=== PATIENT | female | born 1995 | race Caucasian/White ===

== ENCOUNTER 2024-05-26 11:14 | Inpatient (IN) ==
[2024-05-26] MEDS: SODIUM CHLORIDE 0.9% 1,000 ML IV ONE ×2 (11:48→14:34)
[2024-05-26 12:01] LABS: Basophils # (auto) 0.08 K/uL (0.00-0.20); Basophils % (auto) 0.7 %; Eosinophils # (auto) 0.03 K/uL (0.00-0.50); Eosinophils % (auto) 0.3 %; Hematocrit (blood only) 38.4 % (37.0-47.0); Hemoglobin 12.8 g/dl (12.0-16.0); Immature Granulocytes # (auto) 0.04 K/uL (0.01-0.20); Immature Granulocytes % (auto) 0.3 %; Lymphocytes # (auto) 1.67 K/uL (1.20-3.40); Mean Corpuscular Hemoglobin 30.2 pg (25.0-34.0); Mean Corpuscular Hgb Conc 33.3 g/dL (32.0-36.0); Mean Corpuscular Volume 90.6 fL (80.0-100.0); Mean Platelet Volume 10.4 fL (9.4-12.4); Monocytes # (auto) 0.74 K/uL (0.11-0.59); Monocytes % (auto) 6.2 %; Neutrophils # (auto) 9.37 K/uL (1.40-6.50); Neutrophils % (auto) 78.5 %; Platelet Count 286 K/uL (130-400); RDW Coefficient of Variation 12.4 % (11.5-14.5); RDW Standard Deviation 41.2 fL (36.4-46.3); Red Blood Count 4.24 M/uL (4.20-5.40); White Blood Count 11.93 K/ul (4.8-10.8)
[2024-05-26 12:21] LABS: Albumin Globulin Ratio 1.9 (0.9-2); Albumin Level 4.7 gm/dl (3.4-5.0); BUN Creatinine Ratio 18.3 (10-20); Bilirubin,Total 0.5 mg/dl (0.2-1.0); Calcium 9.4 mg/dl (8.6-10.3); Creatinine Clr Calc Pharmacy 130.7 ml/min; Globulin 2.5 gm/dl (2.5-4.0); Potassium 3.7 mmol/L (3.5-5.1); Total Protein 7.2 gm/dl (6.0-8.3)
[2024-05-26] MEDS: ONDANSETRON INJ 2 MG/ML 2 ML VIAL IV STA (12:25)
[2024-05-26 12:31] LABS: Partial Thromboplastin Time 28 Seconds (21-31); Prothrombin Time 10.7 Seconds (9.0-12.0)
--- NOTE | 2024-05-26 13:01 | Emergency Department Note ---
Impression & Plan Postoperative hemorrhage of anus, Syncope and collapse, CHI (closed head injury), Laceration of scalp ED Provider Note NAME: SHUN REED AGE: 28 SEX: Female INFORMANT: Patient ED PROVIDER(S): Isaac Fish MD CHIEF COMPLAINT: Rectal bleeding PLAN: Disposition: Admitted none Outpatient prescription management: none Referral: None MEDICAL DECISION MAKING: Patient presented because of recurrent rectal bleeding. On examination she had no active bleeding from the surgical site. Internal examination was deferred. Patient did have a slight drop of her hemoglobin by 1 point. She was mildly tachycardic but that resolved. She was treated with Zofran and normal saline. She declined any analgesia. Patient was hydrated. She had no recurrent bleeding and I did place a consult with Dr. Kebede of general surgery. He did evaluate the patient in the ER. He did want to admit the patient for observation. He did place admission orders. The patient then got up on her own accord and went to the bathroom. She became lightheaded. She did have a bloody bowel movement. Patient did have a syncopal episode x 2. She did fall backwards and struck the back of her head. She was seen by nursing and was attended to promptly. Patient was noting a mild headache but no other pain. She felt lightheaded. She was helped up and placing her back into the stretcher she had a third very brief syncopal episode lasting less than 20 seconds. A second IV was established. A second fluid bolus was done and an i-STAT performed. Patient was noted to have dropped her hemoglobin down to 9 from 12. There was a laceration on the back of her head. CT imaging was performed. No skull fracture or bleed noted. Patient was reassessed frequently. Let gel was applied and her scalp laceration was repaired by Zo Newsome PA-C. Please see Zo's note for further details. Dr. Kebede was notified and will reevaluate the patient after his procedure. Patient's type and screen was changed to the type and cross but blood transfusion was held. Thankfully patient did not suffer any other injury from her syncopal episode. I believe the patient had a vagal response to her bloody bowel movement in conjunction with the drop in her hemoglobin. Further management in the hospital be necessary. I refer you to the EMR for further details. Care/management discussed with: visual merchandise manager Level of care consideration(s): After review of the information above and other included data, I feel the patient requires escalation of care to admission Triage Nursing notes: reviewed and agree them. Vital Signs: reviewed and remarkable for no significant abnormalities Additional History obtained from: none Chronic Medical/Social Conditions affecting care: none Prior/ Outside/ External records reviewed: Prior ED record reviewed Differential Diagnosis: Postoperative bleeding, dehydration, coagulopathy, diverticulosis, fissure, infection, as well as other pathologies. Diagnostics, independently interpreted by me: ECG: Deferred Cardiac Monitoring: Cardiac monitoring ordered by me: The patient was placed on continuous cardiac monitoring and observed. It revealed a sinus tachycardic rhythm at 107 beats per minute without ectopy or evidence of dysrhythmia. Continuous cardiac monitoring done again after syncopal episode showed a sinus tachycardia at 100 bpm. No dysrhythmia. After continuous Medical decision rules: none Imaging studies: Head CT: A noncontrast CT scan of the head was performed and was negative for tumor, fracture, intracranial hemorrhage, or other acute pathology. HPI: 28 year old Female arrives for evaluation of rectal bleeding. Patient had a hemorrhoidectomy done by Dr. Layton at [facility] 12 days ago. She had bleeding that started this morning around 2 AM. She came to the emergency department and was seen earlier. Bleeding had stopped. Blood work was unremarkable. Patient was feeling better. She was discharged. She noted passing 2 large clots prior to the ED visit earlier today and then has passed at least for 5 more clots about the size of her hand. Patient noted some mild rectal pain that was a 2 out of 10. No abdominal pain. She felt fatigued and her heart was racing. Pt denies LOC, headache, fevers, diaphoresis, visual changes, neck pain, chest pain, breathing difficulties, nausea, vomiting, abdominal pain, back pain, melena, urinary symptoms, numbness, lymphadenopathy, rash, or other complaints.. PAST MEDICAL HISTORY: See Below, hemorrhoids PAST SURGICAL HISTORY: See Below, hemorrhoidectomy SOCIAL HISTORY: See Below, non-smoker HOME MEDICATIONS: See Below ALLERGIES: See Below VITALS: See Below PHYSICAL EXAMINATION: GENERAL: Awake, alert, anxious-appearing, in no distress HENT: Normocephalic, atraumatic. Oropharynx unremarkable. EYES: Normal conjunctiva. Sclera non-icteric. NECK: Inspection normal. Non-tender. Supple. No nuchal rigidity. FROM. No masses. RESPIRATORY: Clear to auscultation. No wheezes. No rales. Normal respiratory effort. CARDIAC: Tachycardic rate. Normal rhythm. No murmurs. No rubs. Extremities warm and well perfused. Pulses equal. No JVD. GI: Soft, non-distended. No tenderness to palpation. No rebound or guarding. No masses. RECTAL: No perirectal erythema or edema. Postsurgical changes noted in the 6 o'clock position without active bleeding. Internal examination was deferred. MUSCULOSKELETAL: Atraumatic.The back is symmetrical on inspection without obvious abnormality. No joint edema. LOWER EXTREMITIES: Calves are equal size bilaterally and non-tender. No edema. No discoloration. NEURO: Normal sensorium. No sensory or motor deficits noted. SKIN: No rash or jaundice noted. PROCEDURES: See EMR for PA laceration repair CRITICAL CARE: I have personally spent 45 minutes of critical care time in the direct management of this patient. This includes bedside care, interpretation of diagnostic studies, and testing, discussion with consultants, patient, and other required patient management activities. These minutes are in excess of all separately billable procedures. OBSERVATION NOTE: none Past Med/Surg History Problem List (Updated 05/26/24 @ 16:53 by Isaac Fish MD) Laceration of scalp (Acute) CHI (closed head injury) (Acute) Syncope and collapse (Acute) Postoperative hemorrhage of anus (Acute) Rectal bleed (Acute) Encounter for IUD removal Encounter for IUD insertion Encounter for gynecological examination without abnormal finding [facility] ([facility]) [facility] Medical History (Updated 05/26/24 @ 16:53 by Isaac Fish MD) Anxiety Family History Grandmother (Maternal) Breast cancer Grandmother (Paternal) Breast cancer Other No pertinent family history in first degree relatives Denies family history of Ovarian cancer Colorectal cancer Uterine cancer Social History Smoking Status: Never smoker Preferred Language: Khmer Feels Safe at Home: Yes Allergies Allergies Allergy/AdvReac Type Severity Reaction Status Date / Time No Known Allergies Allergy Verified 03/23/20 09:10 Home Meds Home Medications Medication Instructions Recorded Confirmed levonorgestrel 17.5 mcg/24 hr (up 1 device intrauterine DIRECTED 03/23/20 05/26/24 to 5 yrs) 19.5mg intrauterine device (Kyleena) acetaminophen 500 mg tablet 1,000 mg PO BID PRN Pain 05/26/24 05/26/24 Previous Rx's Medication Instructions Recorded docusate sodium 100 mg capsule 100 mg PO DAILY #20 caps 05/26/24 (Colace) Results & Data (ED) Vital Signs Vital Signs - 24 hr 05/26/24 11:15 05/26/24 11:47 05/26/24 12:00 Temperature 36.5 C Temperature Source Temporal Artery Scan Pulse Rate 130 H 85 Pulse Rate from SpO2 Sensor 83 Respiratory Rate 20 18 Blood Pressure 112/69 108/74 Blood Pressure Mean 83 85 Pulse Oximetry 98 97 100 Oxygen Delivery Method Room Air Room Air Sepsis Recent Fever Within 48 Hours No Sepsis New/Unexplained Change in Mental Status N/A Sepsis Action Taken by Nursing No Action Required 05/26/24 12:03 05/26/24 12:18 05/26/24 12:30 Temperature Temperature Source Pulse Rate 89 77 78 Pulse Rate from SpO2 Sensor 86 80 Respiratory Rate 23 15 Blood Pressure 108/74 106/61 Blood Pressure Mean 85 76 Pulse Oximetry 100 100 Oxygen Delivery Method Sepsis Recent Fever Within 48 Hours Sepsis New/Unexplained Change in Mental Status Sepsis Action Taken by Nursing 05/26/24 14:36 05/26/24 15:01 05/26/24 15:30 Temperature Temperature Source Pulse Rate 99 H 100 H Pulse Rate from SpO2 Sensor 97 H 94 H Respiratory Rate 21 12 Blood Pressure 112/75 95/60 L 100/57 L Blood Pressure Mean 87 68 71 Pulse Oximetry 97 97 Oxygen Delivery Method Sepsis Recent Fever Within 48 Hours Sepsis New/Unexplained Change in Mental Status Sepsis Action Taken by Nursing Laboratory Data 05/26/24 11:44 05/26/24 11:44 Lab Results 05/26/24 05/26/24 05/26/24 Range/Units 11:44 14:36 15:06 WBC 11.93 H (4.8-10.8) K/ul RBC 4.24 (4.20-5.40) M/uL Hgb 12.8 (12.0-16.0) g/dl POC Hgb 9.9 L (12.0-16.0) g/dl Hct 38.4 (37.0-47.0) % POC Hct 29 L (37-47) % MCV 90.6 (80.0-100.0) fL MCH 30.2 (25.0-34.0) pg MCHC 33.3 (32.0-36.0) g/dL RDW Std Deviation 41.2 (36.4-46.3) fL RDW Coeff of Shahid 12.4 (11.5-14.5) % Plt Count 286 (130-400) K/uL MPV 10.4 (9.4-12.4) fL Immature Gran % (Auto) 0.3 % Neut % (Auto) 78.5 % Lymph % (Auto) 14.0 % Barnes % (Auto) 6.2 % Eos % (Auto) 0.3 % Baso % (Auto) 0.7 % Neut # (Auto) 9.37 H (1.40-6.50) K/uL Lymph # (Auto) 1.67 (1.20-3.40) K/uL Barnes # (Auto) 0.74 H (0.11-0.59) K/uL Eos # (Auto) 0.03 (0.00-0.50) K/uL Baso # (Auto) 0.08 (0.00-0.20) K/uL Immature Gran # (Auto) 0.04 (0.01-0.20) K/uL PT 10.7 (9.0-12.0) Seconds INR 1.0 (0.9-1.1) APTT 28 (21-31) Seconds PTT Ratio 1.0 POC Sodium 141 (135-144) mmol/L Sodium 138 (136-145) mmol/L POC Potassium 3.8 (3.3-5.0) mmol/L Potassium 3.7 (3.5-5.1) mmol/L POC Chloride 109 (101-112) mmol/L Chloride 108 H (98-107) mmol/L Carbon Dioxide 22 (21-32) mmol/L POC Total CO2 20 L (24-31) mmol/L Anion Gap 8 (3-11) POC Anion Gap 16.0 (16-25) mmol/L POC BUN 8 (7-18) mg/dl BUN 11 (6-23) mg/dl Creatinine 0.60 (0.6-1.2) mg/dl POC Creatinine 0.6 (0.6-1.3) mg/dl Est Cr Clr Drug Dosing 130.7 ml/min eGFR 125.31 BUN/Creatinine Ratio 18.3 (10-20) Glucose 114 H (70-99(Fasting)) mg/dl POC Glucose (other) 134 H (70-99) mg/dl Calcium 9.4 (8.6-10.3) mg/dl POC Ioniz Calcium Esdras 1.19 (1.12-1.32) mmol/l Total Bilirubin 0.5 (0.2-1.0) mg/dl AST 18 (13-39) U/L ALT 14 (7-52) U/L Alkaline Phosphatase 56 (34-104) U/L Total Protein 7.2 (6.0-8.3) gm/dl Albumin 4.7 (3.4-5.0) gm/dl Globulin 2.5 (2.5-4.0) gm/dl Albumin/Globulin Ratio 1.9 (0.9-2) Blood Type O Positive Blood Type Recheck O Positive Antibody Screen NEGATIVE Administered Medications Discontinued Medications Sodium Chloride (Nss) 1,000 mls @ 999 mls/hr IV .Q1H1M ONE Stop: 05/26/24 12:27 Last Infusion: 05/26/24 13:03 Dose: Infused Documented By: Admin: 05/26/24 11:48 Dose: 999 mls/hr Documented By: NAI Sodium Chloride (Nss) 1,000 mls @ 999 mls/hr IV .Q1H1M ONE Stop: 05/26/24 15:33 Last Infusion: 05/26/24 15:50 Dose: Infused Documented By: Admin: 05/26/24 14:34 Dose: 999 mls/hr Documented By: DRAGAN Lidocaine (Lidocaine/Epineph/Tetracaine 1 Ea Syr) Confirm Administered Dose 1 each EXT .STK-MED ONE Stop: 05/26/24 14:40 Last Admin: 05/26/24 14:41 Dose: 1 each Documented By: DRAGAN Lidocaine (Lidocaine/Epineph/Tetracaine 1 Ea Syr) 1 each EXT NOW STA Stop: 05/26/24 14:41 Last Admin: 05/26/24 15:31 Dose: Not Given Documented By: DRAGAN Ondansetron HCl (Ondansetron Inj 2 Mg/Ml 2 Ml Vial) 4 mg IV NOW STA Stop: 05/26/24 12:02 Last Admin: 05/26/24 12:25 Dose: 4 mg Documented By: NAI Ondansetron HCl (Ondansetron Inj 2 Mg/Ml 2 Ml Vial) Confirm Administered Dose 4 mg .ROUTE .STK-MED ONE Stop: 05/26/24 14:32 Last Admin: 05/26/24 14:33 Dose: 4 mg Documented By: DRAGAN Imaging Data Radiologist's Impression: Head CT 05/26/24 14:40 EXAM: CT Head Without Intravenous Contrast INDICATION: Trauma. TECHNIQUE: Axial computed tomography images of the head/brain without intravenous contrast. Sagittal and/or coronal reformats are provided. Sagittal and coronal reformatted images were created and reviewed. This CT exam was performed using one or more of the following dose reduction techniques: automated exposure control, adjustment of the mA and/or kV according to patient size, and/or use of iterative reconstruction technique. COMPARISON: No relevant prior studies available. FINDINGS: Limitations: None. Brain and extra-axial spaces: No abnormality noted. No hemorrhage. No significant white matter disease. No edema. No ventriculomegaly. Bones/joints: No acute changes. Soft tissues: No significant abnormality noted. Vasculature: No acute abnormality noted. Sinuses: No layering fluid in the visualized portions of the paranasal sinuses. Mastoid air cells: No mastoid effusion. Orbits: No significant abnormality noted. IMPRESSION: No abnormality noted. ACT 112: Negative or not required by law. Electronically signed by Shahrzad Clarke 05-26-2024 3:00 PM Discharge Plan Visit Data Chief Complaint: Rectal Bleed Stated Complaint: RECTAL BLEEDING WORSENING ED Provider: Isaac Fish Discharge Problem: Postoperative hemorrhage of anus, Syncope and collapse, CHI (closed head injury), Laceration of scalp Forms Stand Alone Forms: Tr[employer] Prescriptions Prescriptions: No Action Kyleena 17.5 mcg/24 hrs (5 yrs) 19.5 mg intrauterine device 1 device intrauterine DIRECTED docusate sodium [Colace] 100 mg capsule 100 mg PO DAILY Qty: 20 0RF acetaminophen [Tylenol Ex Str Rapid Release] 500 mg Tablet 1,000 mg PO BID PRN (Reason: Pain) Referrals Referrals: Yoel Courtney MD [Primary Care Provider] -
--- NOTE | 2024-05-26 13:13 | History & Physical Report ---
Date of Service May 26, 2024 Assessment & Plan (1) Postoperative hemorrhage of anus: Plan: Since she has bounced back to the emergency room 2 times we discussed her options and we will plan to observe her overnight to ensure there is no ongoing bleeding. I want her basically on bedrest and we will keep her n.p.o. in case she would need to return to the operating room. I will repeat her H/H tomorrow morning. Currently stable and there is no urgent indication for surgical intervention at this time. History of Present Illness Primary Care Provider: Yoel Courtney MD 28-year old female who underwent a hemorrhoidectomy by Dr. Mike Layton about 10 days ago. She was fine until yesterday she had a hard painful bowel movement. She has had some bleeding ever since. She was actually discharged from the emergency room this morning around 6 AM subsequently went home and had some additional blood clots and return to the emergency room. Currently having minimal discomfort. Her hemoglobin is 12.8. Pulse is 78. Blood pressure 106/61 Allergies Allergy/AdvReac Type Severity Reaction Status Date / Time No Known Allergies Allergy Verified 03/23/20 09:10 Home Medications Medication Instructions Recorded Confirmed Type levonorgestrel 17.5 mcg/24 hr (up intrauterine 03/23/20 03/23/20 History to 5 yrs) 19.5mg intrauterine device (Kyleena) docusate sodium 100 mg capsule 100 mg PO DAILY #20 caps 05/26/24 Rx (Colace) Past Med/Surg History Problem List (Updated 05/26/24 @ 13:01 by Isaac Fish MD) Postoperative hemorrhage of anus (Acute) Rectal bleed (Acute) Encounter for IUD removal Encounter for IUD insertion Encounter for gynecological examination without abnormal finding IUD check up (Acute) Kyleena 03/2020 Medical History (Updated 05/26/24 @ 13:01 by Isaac Fish MD) Anxiety Family History (Updated 03/13/20 @ 10:40 by Ceci Bliss) Grandmother (Maternal) Breast cancer Grandmother (Paternal) Breast cancer Other No pertinent family history in first degree relatives Denies family history of Ovarian cancer Colorectal cancer Uterine cancer Social History Smoking Status: Never smoker Preferred Language: Pashto Feels Safe at Home: Yes Review of Systems All systems reviewed & are unremarkable except as noted in HPI & below Physical Exam Constitutional: WD/WN, vitals as above no acute distress and not ill appearing Eyes: PERRL, conjunctivae normal, anicteric sclerae EOM intact bilaterally ENMT: external ear and nose normal, oropharynx normal Ears: no hearing impairment Neck: trachea midline, no thyromegaly Respiratory: normal respiratory effort; no respiratory distress and does not use accessory muscles Cardiovascular: Rate/Rhythm: regular rate and regular rhythm Gastrointestinal (Abdomen): normal bowel sounds, soft, nontender, no hepatosplenomegaly Anoscopy not performed secondary to discomfort however on visual inspection anteriorly there is a small tear likely from prior suture line. Currently there is no active bleeding. Skin: no rashes, warm and dry Psychiatric: Orientation: alert, oriented x 3 and cooperative Results & Data Vital Signs (Past 12 Hours) Vital Signs Temp Pulse Resp BP Pulse Ox O2 Del Method 05/26/24 12:30 78 15 106/61 100 05/26/24 12:18 77 05/26/24 12:03 89 23 108/74 100 05/26/24 12:00 85 18 108/74 100 05/26/24 11:47 97 Room Air 05/26/24 11:15 36.5 C 130 H 20 112/69 98 Room Air Code Status & VTE Plan VTE Prophylaxis Plan VTE Prophylaxis will be ordered: Yes
[2024-05-26] MEDS: ONDANSETRON INJ 2 MG/ML 2 ML VIAL ONE (14:33)
[2024-05-26] MEDS ORDERED: SODIUM CHLORIDE 0.9% 50 ML IV PRN ×2 (14:34→19:57)
[2024-05-26] MEDS ORDERED: SODIUM CHLORIDE 0.9% 100 ML IV PRN ×2 (14:34→19:57)
[2024-05-26] MEDS: LIDOCAINE/EPINEPH/TETRACAINE 1 EA SYR EXT ONE (14:41)
[2024-05-26 14:48] LABS: iSTAT Creatinine 0.6 mg/dl (0.6-1.3); iSTAT Hemoglobin 9.9 g/dl (12.0-16.0); iSTAT Ionized Calcium 1.19 mmol/l (1.12-1.32); iSTAT Potassium 3.8 mmol/L (3.3-5.0)
--- NOTE | 2024-05-26 15:01 | CT Scan Report ---
EXAM: CT Head Without Intravenous Contrast INDICATION: Trauma. TECHNIQUE: Axial computed tomography images of the head/brain without intravenous contrast. Sagittal and/or coronal reformats are provided. Sagittal and coronal reformatted images were created and reviewed. This CT exam was performed using one or more of the following dose reduction techniques: automated exposure control, adjustment of the mA and/or kV according to patient size, and/or use of iterative reconstruction technique. COMPARISON: No relevant prior studies available. FINDINGS: Limitations: None. Brain and extra-axial spaces: No abnormality noted. No hemorrhage. No significant white matter disease. No edema. No ventriculomegaly. Bones/joints: No acute changes. Soft tissues: No significant abnormality noted. Vasculature: No acute abnormality noted. Sinuses: No layering fluid in the visualized portions of the paranasal sinuses. Mastoid air cells: No mastoid effusion. Orbits: No significant abnormality noted. IMPRESSION: No abnormality noted. ACT 112: Negative or not required by law. Electronically signed by Shahrzad Clarke 05-26-2024 3:00 PM
[2024-05-26] MEDS: LIDOCAINE/EPINEPH/TETRACAINE 1 EA SYR EXT STA (15:31)
--- NOTE | 2024-05-26 16:28 | History & Physical Bridge Note ---
Date of Service May 26, 2024 History & Physical Bridge Note I have examined the patient, reviewed the History & Physical and in the interval since the performance of the History & Physical I have noted the following changes of clinical significance: Since I had seen her in ER...pt has had 2 more episodes of passing large clots rectally... Hg has also dropped to 9. discussed options. will take to the OR now for rectal exam under anesthesia to control bleeding. discussed risks. questions answered. pt agrees with the plan.
[2024-05-26] MEDS ORDERED: fentaNYL citrate PF 100 MCG/2 ML VIAL ONE (16:31)
[2024-05-26] MEDS ORDERED: LIDOCAINE 2% 2 ML VIAL/AMP(20MG/ML) INFIL ONE (16:32)
[2024-05-26] MEDS ORDERED: DEXAMETHASONE SOD INJ 4 MG/ML VIAL ONE (16:32)
[2024-05-26] MEDS ORDERED: PROPOFOL IV EMULSION 10 MG/ML 20 ML VIAL IV ONE (16:32)
[2024-05-26] MEDS ORDERED: MIDAZOLAM HCL 1 MG/ML 2ML VIAL ONE (16:32)
[2024-05-26] MEDS ORDERED: ONDANSETRON INJ 2 MG/ML 2 ML VIAL ONE (16:32)
--- NOTE | 2024-05-26 17:04 | Anesthesiology Consultation ---
Date of Service May 26, 2024 Assessment & Plan Chart Review Chart Review: Acceptable Risk for Surgery Consults Requested none History Surgery Operation Date: 05/26/24 17:00 Proposed Procedures p Rectal Surgery - Lambert Kebede DO Height/Weight Height: 5 ft 6 in Weight: 59.8 kg Allergies Allergy/AdvReac Type Severity Reaction Status Date / Time No Known Allergies Allergy Verified 03/23/20 09:10 Medications Home Medications Medication Instructions Recorded Confirmed Last Taken levonorgestrel 17.5 mcg/24 hr (up 1 device intrauterine DIRECTED 03/23/20 05/26/24 Unknown to 5 yrs) 19.5mg intrauterine device (Kyleena) acetaminophen 500 mg tablet 1,000 mg PO BID PRN Pain 05/26/24 05/26/24 Unknown docusate sodium 100 mg capsule 100 mg PO DAILY #20 caps 05/26/24 05/26/24 Unknown (Colace) NPO Date Last Intake of Fluids: 05/26/24 Time Last Intake of Fluids: 10:30 Date Last Intake of Solids: 05/26/24 Time Last Intake of Solids: 09:30 Past Medical History Medical History (Updated 05/26/24 @ 16:53 by Isaac Fish MD) Anxiety Past Family History Family History Grandmother (Maternal) Breast cancer Grandmother (Paternal) Breast cancer Other No pertinent family history in first degree relatives Denies family history of Ovarian cancer Colorectal cancer Uterine cancer Social History Smoking Status: Never smoker Physical Exam Vital Signs Last Vital Signs Temp 36.5 C 05/26/24 11:15 Pulse 100 H 05/26/24 15:30 Resp 12 05/26/24 15:30 BP 100/57 L 05/26/24 15:30 Pulse Ox 97 05/26/24 15:30 O2 Del Method Room Air 05/26/24 11:47 Testing Laboratory Results 05/26/24 11:44 05/26/24 11:44 PT 10.7 Seconds (9.0-12.0) 05/26/24 11:44 INR 1.0 (0.9-1.1) 05/26/24 11:44 APTT 28 Seconds (21-31) 05/26/24 11:44 Blood Type O Positive 05/26/24 11:44 Antibody Screen NEGATIVE 05/26/24 11:44 05/26/24 14:36 POC Glucose (other) 134 H
[2024-05-26] MEDS ORDERED: PROMETHAZINE HCL 6.25 MG in SODIUM CHLORIDE 0.9% 50 ML IV PRN (17:05)
[2024-05-26] MEDS ORDERED: ePHEDrine sulfate 50 MG/ML AMP IV PRN (17:05)
[2024-05-26] MEDS ORDERED: ATROPINE SULFATE 0.1 MG/ML 10ML SYR IV PRN (17:05)
[2024-05-26] MEDS ORDERED: fentaNYL citrate PF 100 MCG/2 ML VIAL IV PRN (17:05)
[2024-05-26] MEDS ORDERED: HYDROmorphone INJ 2 MG/ML SYR/VIAL IV PRN (17:05)
--- NOTE | 2024-05-26 17:12 | Communication Note ---
Date of Service: May 26, 2024 Noted in pre-op holding area that pt did not have test. Pt stated she had negative test prior to recent surgery and cannot be at this time. Discussed w pt and agreed to proceed.
[2024-05-26] MEDS: NEOMYCIN/POLYMYX/BACITR OINT 15 GM TUBE ONE (17:47)
[2024-05-26] MEDS: LIDOCAINE 2% JELLY 5 ML TUBE EXT ONE (17:47)
[2024-05-26] MEDS: GELATIN SPONGE SZ 100 ONE (17:48)
[2024-05-26] MEDS: BUPIVACAINE 0.5 % 5 MG/1 ML MPF 30ML VIAL ONE (17:48)
[2024-05-26] MEDS: BUPIVACAINE LIPOSOME 1.3% 266 MG/20 ML VIAL ONE (17:48)
--- NOTE | 2024-05-26 18:10 | Operative Report ---
PG Post Operative Report Pre & Post Diagnosis Operation Date: 05/26/24 17:00 Pre-Op Diagnosis: Rectal bleeding Post-Op Diagnosis: GI bleed; etiology unclear I identified the patient and participated in the time-out.: Yes Procedure Operation Date: 05/26/24 17:00 Actual Procedures p Rectal Surgery(Not Applicable) - Lambert Kebede DO Surgeon Lambert Kebede DO Gas Systems Worker n/a Estimated Blood Loss 50 Findings Consistent with Post-Op Diagnosis GI bleed not secondary to recent hemorrhoid surgery Specimens none Description of Procedure After informed consent was obtained the patient was taken to the operating room and placed in a supine position. After successful intubation the patient was placed in a high lithotomy position. The perineum and rectum were sterilely prepped and draped in usual fashion. I began by performing a digital rectal exam which did not reveal any palpable abnormalities. I then lubricated a anoscope and inserted it without difficulty. I was able to identify the site of the recent hemorrhoidectomy and it actually looked quite good. I examined the rectum and 360 degrees. There was no active bleeding. However coming from higher up in the GI tract was a large amount of dark kaleigh/black clots. There was ongoing bleeding which I was able to suction and irrigated out. Clearly the issue was a GI bleed higher and not at the site of her recent surgery. The patient was placed black into a supine position extubated and transferred to the intensive care unit in guarded condition. We will aggressively workup a higher GI bleed and consult gastroenterology as well as perform a CTA. I attest to the content of the Intraoperative Record and any orders documented therein. Any exceptions are noted below.
[2024-05-26] MEDS ORDERED: ACETAMINOPHEN 325 MG TAB PO PRN (18:34)
--- NOTE | 2024-05-26 18:41 | Anesthesiology Progress Note ---
Date of Service May 26, 2024 Anesthesia Post Procedure Vital Signs Vital Signs: Temp Pulse Pulse Resp BP BP Pulse Ox 05/26/24 18:25 36.9 C 87 15 118/62 100 05/26/24 18:15 96 H 17 113/66 100 05/26/24 18:05 36.5 C 94 H 16 110/61 100 05/26/24 15:30 100 H 12 100/57 L 97 05/26/24 15:01 95/60 L 05/26/24 14:36 99 H 21 112/75 97 05/26/24 12:30 78 15 106/61 100 05/26/24 12:18 77 05/26/24 12:03 89 23 108/74 100 05/26/24 12:00 85 18 108/74 100 05/26/24 11:47 97 05/26/24 11:15 36.5 C 130 H 20 112/69 98 O2 Del Method O2 Flow Rate 05/26/24 18:25 Room Air 05/26/24 18:15 Room Air 05/26/24 18:05 Oxymask 4 05/26/24 15:30 05/26/24 15:01 05/26/24 14:36 05/26/24 12:30 05/26/24 12:18 05/26/24 12:03 05/26/24 12:00 05/26/24 11:47 Room Air 05/26/24 11:15 Room Air Pain Intensity Rectal: Pain Intensity: 2 Posterior Medial Head: Pain Intensity: 3 Transfer of Care Handoff Completed per policy Notes Mental Status: alert / awake / arousable and participated in evaluation Patient Amnestic to Procedure: Yes Nausea / Vomiting: adequately controlled Pain: adequately controlled Airway Patency, RR, SpO2: stable & adequate BP & HR: stable & adequate Hydration State: stable & adequate Anesthetic Complications: no major complications apparent
--- NOTE | 2024-05-26 18:42 | Critical Care Consultation ---
Date of Consultation May 26, 2024 Assessment & Plan (1) Rectal bleed: (2) Postoperative hemorrhage of anus: (3) Syncope and collapse: (4) CHI (closed head injury): Plan Reason Critically Ill: Suspected acute blood loss from GI tract unspecified source. Taken urgently to OR without identification of bleeding from previous surgical sites. CT angio and veno grams negative at this time for acute hemorrhage. ICU requested for close following of hemodynamics and resuscitation needs overnight. Neuro: syncope with head strike in ER with head laceration/closed head injury- [facility] ICU: NEGATIVE - CT head negative prior to OR for any bleed- follow neurologic exams, if any change repeat non-con head CT eval for DASH - Head laceration with gel closure no hematoma or drainage noted Cardiac - no acute needs at this time - hemodynamics preserved- mild tachycardia following NGT placement and IV attempts- follow closely - see GI/Heme for further plan Respiratory - NO acute needs - extubated in OR to PACU without difficulties, phonating well and on room air GI - Acute blood loss with unspecified source- presumed GI - GI consulted by primary surgical service- NGT placed as requested and reported as negative following irrigation - CT angio and venograms obtained without report of acute loss identified - bowel prep tonight - keep NGT in place RENAL/LYTES - NO acute needs - ICU electrolyte protocol - Peterson to gravity - draining dilute yellow urine ENDO - no acute needs HEME - acute blood loss anemia - HGB 12.9 down to 8 postoperative - recheck at 2030 increase to 9.5- transfuse 1-2 unit of PRBC - Fibrinogen stable at 182 - ical 1.11- replete following blood products- 2gm calcium gluconate - if further evidence of acute blood loss tonight will repeat CT angio and venogram and contact GI - Appreciate GI consultation ID - NO concern at this time for infective causes LINES/IV ACCESS - PIV x3 Continue use of these lines DVT PROPHYLAXIS - SCDS, ambulation- hold chemoprophylaxis in setting of acute blood loss DISPO: ICU until hemodynamics proven stable and no further acute resuscitation needs I have personally spent 48 minutes of time in the direct management of this patient. This is a life/limb threatening event. This includes time spent evaluating patient, direct bedside care, chart review, placing orders, interpretation of diagnostic studies, discussion with consultants, patient, and family members, as well as other required patient management activities. This time is exclusive of all separately billable procedures, and teaching time and separate from and in addition to any other critical care service time. Thank you for allowing us to participate in the care of this patient. Please refer to my attending physician's documentation for any further recommendations. History of Present Illness Reason for Consultation: rectal bleeding with syncope Requesting Physician: Lambert Kebede DO Attending Physician: Lambert Kebede DO History of Present Illness 28 YOF with no reported significant medical history. She reported to the ER today for rectal bleeding following a "difficult bowel movement" around 230 this morning. This is also in light of post hemorrhoidectomy ~ 10 weeks ago. She reports that this was followed by some lower abdominal cramping pain that was constant in nature, both her pain and her bleeding from her rectum progressed through the morning bringing her to the ER today. In the ER she had routine labs performed and a CT of her head completed, as she reportedly had a syncopal episode following a bloody BM in the ER. She was taken to the operating room and underwent rectal exploration of previous surgical site without report of active bleeding from there. See surgeon report. She is coming to the ICU following recovery for close monitoring tonight for any active bleeding or hemorrhage. She did reportedly have decrease in her HGB level from earlier in the day- however this was performed on POC- will obtain appropriate HGB to eval for loss. CT angio of the abdomen has been ordered by admitting surgery team, will add on CT venogram as well. GI has been consulted by surgical team and awaiting further discussions pending return call. Patient has been typed and crossed, will obtain large bore IV, will send fibrinogen and iCA for better picture of hemostasis. She has not received any blood products since arrival or during the OR and has not required any vasoactive medications at this time. CODE: FULL Allergies Allergy/AdvReac Type Severity Reaction Status Date / Time No Known Allergies Allergy Verified 03/23/20 09:10 Home Medications Medication Instructions Recorded Confirmed Type levonorgestrel 17.5 mcg/24 hr (up 1 device intrauterine DIRECTED 03/23/20 05/26/24 History to 5 yrs) 19.5mg intrauterine device (Kyleena) acetaminophen 500 mg tablet 1,000 mg PO BID PRN Pain 05/26/24 05/26/24 History docusate sodium 100 mg capsule 100 mg PO DAILY #20 caps 05/26/24 05/26/24 Rx (Colace) Patient History Medical History (Updated 05/26/24 @ 16:53 by Isaac Fish MD) Anxiety Family History Grandmother (Maternal) Breast cancer Grandmother (Paternal) Breast cancer Other No pertinent family history in first degree relatives Denies family history of Ovarian cancer Colorectal cancer Uterine cancer Social History Smoking Status: Never smoker Hx Alcohol Use: No Hx Substance Use: No Preferred Language: Croatian Communication Ability: Effective Designer Required: No Beliefs That Will Affect Care: None Current Living Situation: Family Feels Safe at Home: Yes Assistive Devices: None Review of Systems Review of Systems: REVIEW OF SYSTEMS: Constitutional: No fever, sweats or chills Eyes: No diplopia, no worsening or blurred vision ENT: normal hearing, no trouble swallowing Respiratory: No cough, sputum, dyspnea at rest or on exertion Cardiovascular: No chest pain, tightness or palpitations Abdomen: + pain, constipation, NO nausea, vomiting, diarrhea Musculoskeletal: No joint pain, calf pain, swelling Neurologic: + passed out in ER earlier, No weakness, numbness/tingling, or balance problems Psychiatric: + anxiety Skin: No rash or itch Physical Exam Physical Exam: PHYSICAL EXAM: General: awake, alert, no apparent distress Head: Normocephalic, head laceration with gel closure noted, no hematoma, ENT: PERRL, EOMI, no pharyngeal exudate, mucous membranes moist Neuro: AAO x 3, speech clear and appropriate, strength intact bilaterally 5/5, sensation intact and equal all extremities and dermatomes, no pronator drift Chest: equal rise and fall of the chest, no accessory muscle use, no heaves or thrills, Clear to auscultation, on room air, Cardiac: Regular rate and rhythm, telemetry reviewed- NSR no ectopy, skin warm dry, cap refill <3 seconds, peripheral pulses +2 no JVD, no murmur, no edema GI: NABS x 4 quadrants, soft, nontender to palpation, no rebound, guarding or tenderness : Spontaneously voiding, no pain, no CVA tenderness, Results & Data Results & Data Vital Signs (Past 12 Hours) Vital Signs Temp Pulse Pulse Resp BP BP Pulse Ox 05/26/24 18:25 36.9 C 87 15 118/62 100 05/26/24 18:15 96 H 17 113/66 100 05/26/24 18:05 36.5 C 94 H 16 110/61 100 05/26/24 15:30 100 H 12 100/57 L 97 05/26/24 15:01 95/60 L 05/26/24 14:36 99 H 21 112/75 97 05/26/24 12:30 78 15 106/61 100 05/26/24 12:18 77 05/26/24 12:03 89 23 108/74 100 05/26/24 12:00 85 18 108/74 100 05/26/24 11:47 97 05/26/24 11:15 36.5 C 130 H 20 112/69 98 O2 Del Method O2 Flow Rate 05/26/24 18:25 Room Air 05/26/24 18:15 Room Air 05/26/24 18:05 Oxymask 4 05/26/24 15:30 05/26/24 15:01 05/26/24 14:36 05/26/24 12:30 05/26/24 12:18 05/26/24 12:03 05/26/24 12:00 05/26/24 11:47 Room Air 05/26/24 11:15 Room Air Laboratory Results Abnormal lab results 05/26/24 05/26/24 Range/Units 11:44 14:36 WBC 11.93 H (4.8-10.8) K/ul POC Hgb 9.9 L (12.0-16.0) g/dl POC Hct 29 L (37-47) % Neut # (Auto) 9.37 H (1.40-6.50) K/uL Humphreys # (Auto) 0.74 H (0.11-0.59) K/uL Chloride 108 H (98-107) mmol/L POC Total CO2 20 L (24-31) mmol/L Glucose 114 H (70-99(Fasting)) mg/dl POC Glucose (other) 134 H (70-99) mg/dl Diagnostic Findings Head CT 05/26/24 14:40 EXAM: CT Head Without Intravenous Contrast INDICATION: Trauma. TECHNIQUE: Axial computed tomography images of the head/brain without intravenous contrast. Sagittal and/or coronal reformats are provided. Sagittal and coronal reformatted images were created and reviewed. This CT exam was performed using one or more of the following dose reduction techniques: automated exposure control, adjustment of the mA and/or kV according to patient size, and/or use of iterative reconstruction technique. COMPARISON: No relevant prior studies available. FINDINGS: Limitations: None. Brain and extra-axial spaces: No abnormality noted. No hemorrhage. No significant white matter disease. No edema. No ventriculomegaly. Bones/joints: No acute changes. Soft tissues: No significant abnormality noted. Vasculature: No acute abnormality noted. Sinuses: No layering fluid in the visualized portions of the paranasal sinuses. Mastoid air cells: No mastoid effusion. Orbits: No significant abnormality noted. IMPRESSION: No abnormality noted. ACT 112: Negative or not required by law. Electronically signed by Shahrzad Clarke 05-26-2024 3:00 PM Medications Administered Home Medications levonorgestrel 17.5 mcg/24 hr (up to 5 yrs) 19.5mg intrauterine device (Kyleena) 1 device intrauterine DIRECTED 03/23/20 [History Confirmed 05/26/24] acetaminophen 500 mg tablet 1,000 mg PO BID PRN Pain 05/26/24 [History Confirmed 05/26/24] docusate sodium 100 mg capsule (Colace) 100 mg PO DAILY #20 caps 05/26/24 [Rx Confirmed 05/26/24] Active Medications Acetaminophen (Acetaminophen 325 Mg Tab) 650 mg PO Q6H PRN PRN Reason: Pain & Pre PT Stop: 06/25/24 18:33 Sodium Chloride (Nss) 1,000 mls @ 125 mls/hr IV .Q8H HILDA Stop: 05/27/24 18:33 Ioversol (Optiray 320 125ml) 119 ml IV ONCE ONE Stop: 05/26/24 18:44 Last Admin: 05/26/24 18:43 Dose: 119 ml Ondansetron HCl (Ondansetron Inj 2 Mg/Ml 2 Ml Vial) 4 mg IV ONCE PRN PRN Reason: PACU Use Only-Nausea/Vomiting Stop: 05/27/24 01:05 Ondansetron HCl (Ondansetron Inj 2 Mg/Ml 2 Ml Vial) 4 mg IV Q4H PRN PRN Reason: Nausea And Vomiting Stop: 06/25/24 18:33 Coding Level of Care Code 14931 IN/OBS CONSULT LVL 3,45M Diagnoses Rectal bleed K62.5 Postoperative hemorrhage of anus K62.5; K91.89 Syncope and collapse R55 CHI (closed head injury) S09.90XA
[2024-05-26] MEDS: OPTIRAY 320 125ml IV ONE (18:43)
--- NOTE | 2024-05-26 19:06 | CT Scan Report ---
EXAM: CT Angiogram/Venogram abdomen and Pelvis Without and With Intravenous Contrast INDICATION: Rectal bleeding post hemorrhoidectomy 12 days ago. Hematuria. TECHNIQUE: Axial computed tomographic angiography images of the abdomen and pelvis without and with intravenous contrast. Sagittal and coronal reformatted images were created and reviewed. Images obtained in the arterial and portal venous phases. This CT exam was performed using one or more of the following dose reduction techniques: automated exposure control, adjustment of the mA and/or kV according to patient size, and/or use of iterative reconstruction technique. MIP reconstructed images were created and reviewed. CONTRAST: 119 ml of Optiray 320 was administered intravenously. COMPARISON: No relevant prior studies available. FINDINGS: VASCULATURE: Aorta: There is no aortic aneurysm or dissection. Celiac trunk and mesenteric arteries: No acute change noted. No occlusion or significant stenosis. Renal arteries: No acute change noted. No occlusion or significant stenosis. Iliac arteries: No acute change noted. No occlusion or significant stenosis. Iliac veins: Imaging during venous phase shows homogeneous opacification of the femoral and iliac veins as well as the IVC. Lung bases: No abnormality noted. No mass. No consolidation. ABDOMEN: Liver: No abnormality noted. No mass. Gallbladder and bile ducts: No abnormality noted. No calcified stones. No ductal dilation. Pancreas: No abnormality noted. No ductal dilation. No mass. Spleen: No abnormality noted. No splenomegaly. Adrenals: No abnormality noted. No mass. Kidneys and ureters: No abnormality noted. No obstructing stones. No hydronephrosis. No solid mass. Stomach and bowel: There is mild rectal thinning and inflammation. No evidence of acute hemorrhage. No perirectal fluid or mass. No obstruction. PELVIS: Appendix: Well seen and appears normal. Bladder: No abnormality noted. No stones. No mass. Reproductive: Dominant follicle present in the right ovary. No further assessment required. ABDOMEN and PELVIS: Intraperitoneal space: No abnormality noted. No significant fluid collection. No free air. Bones/joints: No acute or atypical chronic changes. Soft tissues: No abnormality noted. Lymph nodes: No abnormality noted. No enlarged lymph nodes. Tubes, lines and devices: Intrauterine contraceptive device in good position. IMPRESSION: Mild rectal thickening without fluid collection or active hemorrhage. ACT 112: Negative or not required by law. Electronically signed by Shahrzad Clarke 05-26-2024 7:05 PM
[2024-05-26 19:25] LABS: Hematocrit (blood only) 23.7 % (37.0-47.0)
[2024-05-26] MEDS ORDERED: CHLORASEPTIC (PHENOL) 1.4% SOLN 180 ML BTL MT PRN (20:02)
[2024-05-26 20:28] LABS: Fibrinogen 182 mg/dl (184-400)
--- NOTE | 2024-05-26 20:36 | Communication Note ---
Date of Service: May 26, 2024 This is a 28-year-old female who underwent a hemorrhoidectomy by Dr. Vikash Layton of [facility] approximate 10 days ago. Patient was doing well postoperatively until 05/25/2024 patient noted she had a hard and painful bowel movement and she has been having rectal bleeding ever since. She presented to the emergency department the morning of 05/26/2024 and she was felt to be stable for discharge home. Since that time the patient has had ongoing rectal bleeding and she has had multiple episodes of bloody bowel movements with some blood clot and thus returned to the emergency department. While in the emergency department the patient had 2 reported syncopal episodes, 1 when she fell and struck her head. She did undergo a head CT scan were no acute abnormalities were identified. She was noted to have a head laceration which was repaired with edward in the emergency department. Due to her ongoing issues she was admitted to the hospital by Dr. Walter Kebede for observation. Labs were checked and her initial hemoglobin and hematocrit were 12.8 and 38.4. The patient subsequently had an i-STAT hemoglobin checked approximately 2 and half hours later and her hemoglobin had dropped to 9.9. Because of this Dr. Kebede opted to take the patient to the operating room. In the operating room Dr. Kebede performed a rectal exam under anesthesia where he did not identify any abnormalities. He was also able to insert an anoscope and he identified the site of patient's hemorrhoidectomy and he did not note any active bleeding from the site. Patient did however no higher up in the GI tract there is a large amount of dark kaleigh colored blood with some dark blood clots suspicious for ongoing bleeding and patient was therefore transferred to the intensive care unit. Upon transfer to the ICU the patient had another hemoglobin and hematocrit checked at approximately 7:00 PM which were noted to be 8 and 23.7. The patient was noted to have coagulation studies this admission which were normal. She also was noted to have a platelet count greater than 200,000. Patient notes that she does not take any anticoagulants as an outpatient. The patient ultimately underwent a CT venogram as well as a CT angiogram of the abdomen pelvis. This study showed the patient had rectal wall thickening without any fluid collection or areas of active hemorrhage. Stat GI consultation was obtained and I did discuss personally via phone with Dr. Garrett and I described the above-noted situation to him in detail. Dr. Garrett has subsequently madethe following recommendations: He instructed us to insert an NG tube which was performed by the ICU nursing staff. The NG tube appeared to be within the stomach. The gastric lavage was performed which was negative and Dr. Alexis was informed of this. He has requested 2 units packed red blood cells to be transfused. I did contact the blood bank personally and they did have a previous type and cross and the blood will be ready shortly We will administer 1 dose of intravenous Protonix Will repeat stat hemoglobin and hematocrit now and then follow hemoglobin and hematocrit every 6 hours He has requested that we administer 1 gallon of GoLytely over 3 to 4 hours with plans to perform a colonoscopy the morning of 05/27/2024. Dr. Stafford has requested that the ICU nursing staff be given his phone number which I provided him with. If the patient has any signs of active bleeding he is to be notified and he will consider performing colonoscopy at an earlier time At the conclusion of my visit with the patient she was noted to be normotensive with a blood pressure approximately 120/80. Her pulse was anywhere from 85 to 105. Patient denied any abdominal pain. I did discuss the above plan with my attending physician Dr. Kebede. I also discussed the above plan with the patient and her family who was present at bedside and they were in agreement to the above. We will continue to follow closely. Addendum (12:30 AM) Patient revisited at the bedside and at the time of my visit was notified by nursing staff the patient had began having some episodes of tachycardia with nonspecific ST changes with some ST depressions noted. These changes self resolved and would recur and self resolve again. Patient is asymptomatic through these episodes without any chest pain. She also denies any abdominal pain. Patient has received 1 unit of packed red blood cells. GI was notified and instructed to check a stat hemoglobin and hematocrit and if hemoglobin is g reater than 10 to hold on transfusing second unit of blood. Her hemoglobin has returned at 10.4 with a hematocrit of 29.9 and we will therefore hold on the next unit of packed red blood cells. Discussed with the ICU staff and the patient is going to receive 1 g of calcium secondary to the blood transfusion. Due to the above-noted EKG changes of [id number] ultrasound was performed by the ICU staff the patient did not appear to have a pericardial effusion and her heart was squeezing well. Additional labs were checked including a lactic acid level which was normal. She also had a high-sensitivity troponin checked that was not elevated. Phosphorus and magnesium levels were also within normal range. Previously noted potassium level was also normal. The patient is nearly completed the 1 gallon of GoLytely prep requested by gastroenterologythe patient has not had any bowel movement or results from this at this time. After this visit the patient was checked on again and she was resting comfortably in bed. The patient was noted to be normotensive throughout her stay in the ICU thus far. Will continue to monitor closely. Patient's mother was present at bedside and she was updated. Addendum (6:00 AM) Patient's most recent labs reviewed. Hemoglobin and hematocrit are now 9.7 and 28.2 after transfusion of 1 unit of packed red blood cells. I discussed with nursing staff the patient has been hemodynamically stable. Since her bowel prep has been administered she has been having bowel movements that appear to be both old and new blood. As noted previously and GI is planning on performing colonoscopy to try to ascertain the site of bleeding.
[2024-05-26] MEDS: LAVAGE SOLUTION 4000ML PO SCH (21:30)
[2024-05-26] MEDS: PANTOprazole 40 MG/10 ML SYR IV ONE (21:32)
[2024-05-26] MEDS: ACETAMINOPHEN 1,000 MG/100 ML VIAL IV PRN (21:46)
[2024-05-26 21:52] LABS: Hematocrit (blood only) 27.9 % (37.0-47.0); Hemoglobin 9.5 g/dl (12.0-16.0)
[2024-05-26] MEDS: diphenhydrAMINE 50 MG/ML VIAL IV STA (21:56)
[2024-05-26] MEDS: ONDANSETRON INJ 2 MG/ML 2 ML VIAL IV PRN (21:56)
[2024-05-26] MEDS: SODIUM CHLORIDE 0.9% 1,000 ML IV SCH (22:29)
--- NOTE | 2024-05-26 22:37 | XRay Report ---
Exam(s): XR KUB EXAM: XR Abdomen, 1 View CLINICAL HISTORY: NGT placement. TECHNIQUE: Frontal supine view of the abdomen/pelvis. COMPARISON: 01/31/2019. FINDINGS: Gastrointestinal tract: NG tube is present with the tip coiled in the stomach. No dilation. Bones/joints: Unremarkable. No acute fracture. IMPRESSION: And the tube coiled in the stomach. Electronically signed by: Deandre Erazo M.D. 05/26/24 22:36 PM
--- NOTE | 2024-05-26 23:36 | Communication Note ---
Date of Service: May 26, 2024 Patient with increased HR to 130s, blood pressure stable. She then had rythm change to an SVT appearing rhythm with narrow QRS and deep inverted T waves- ECG done at the time did not capture the rhythm however is with some nonspecific ST changes. She is without chest pain or difficulty breathing, her abdomen is soft and nontender throughout as well as no blood loss noted from rectum. Bedside POCUS was performed without evidence of pericardial effusion and good contractility throughout despite tachycardia. Her HR has decreased to the 100s currently. Will obtain HGB now, lactate now, and Magnesium now. Jamie ELIZABETH (ACNP-)
[2024-05-26 23:50] LABS: Hematocrit (blood only) 29.9 % (37.0-47.0); Hemoglobin 10.4 g/dl (12.0-16.0)
[2024-05-27 00:11] LABS: Magnesium 1.7 mg/dl (1.7-2.4); Phosphorus 3.1 mg/dl (2.5-4.9)
[2024-05-27] MEDS ORDERED: CALCIUM GLUCONATE 1,000 MG/60 ML BAG IV SCH (00:15)
[2024-05-27 00:18] LABS: Troponin I High Sensitivity 3.3 pg/ml (0-14)
[2024-05-27] MEDS: CALCIUM GLUCONATE 1,000 MG/60 ML BAG IV SCH (00:33)
[2024-05-27 02:14] LABS: Hematocrit (blood only) 28.2 % (37.0-47.0); Hemoglobin 9.7 g/dl (12.0-16.0)
[2024-05-27] MEDS: LAVAGE SOLUTION 4000ML PO ONE (07:31)
--- NOTE | 2024-05-27 07:55 | Surgery Progress Note ---
Date of Service May 27, 2024 Assessment & Plan (1) Rectal bleed: Plan: pod 1 rectal examination under anesthesia with Dr Kebede rectal bleeding not thought to be 2/2 recent hemorrhoidectomy Pt will undergo colonoscopy with GI today low grade temps 99.5 , hr 116, Bp stable 119/66 H/H today 8.9/28.2 pt denies dizziness/ feeling light headed NGT per GI currently clamped Will follow up on colonoscopy results. Admission and Anticipated Discharge Date Admission Date: May 26, 2024 Supervising Physician Co-Signing Physician Notes Her labs were reviewed Hemoglobin is 8.9 and she is tolerated the GI prep well Plan for colonoscopy today with GI No plans for any surgical intervention If she continues with bleeding and no source is found, would recommend transfer to tertiary care center for consideration of interventional radiology perform an angiogram and possible embolization of the bleeding if found Will follow Subjective no new complaints Review of Systems Respiratory: no dyspnea Gastrointestinal: no abdominal pain and no vomiting Psychiatric: no confusion Physical Exam Constitutional: cooperative and comfortable; no acute distress Respiratory: normal respiratory effort; no respiratory distress Cardiovascular: Rate/Rhythm: + tachycardic (109) Gastrointestinal (Abdomen): Inspection/Auscultation: abdomen not distended Percussion/Palpation: abdomen soft; abdomen nontender Psychiatric: Orientation: alert and oriented x 3 Results & Data Vital Signs (Past 12 Hours) Vital Signs Temp Pulse Pulse Resp BP BP Pulse Ox 05/27/24 06:00 116/65 05/27/24 05:57 99.5 F 109 H 20 97 05/27/24 05:45 118/64 05/27/24 05:15 119/63 05/27/24 05:12 99.3 F 109 H 19 98 05/27/24 05:00 99.3 F 109 H 22 98 05/27/24 05:00 118/62 05/27/24 05:00 118/62 05/27/24 05:00 118/62 05/27/24 04:45 119/68 05/27/24 04:45 119/68 05/27/24 04:42 113/68 05/27/24 04:21 99.7 F H 05/27/24 04:15 92/55 L 05/27/24 04:15 92/55 L 05/27/24 04:15 92/55 L 05/27/24 04:15 92/55 L 05/27/24 04:15 92/55 L 05/27/24 04:15 99.5 F 116 H 23 99 05/27/24 04:00 99.5 F 119 H 20 96 05/27/24 04:00 124/61 05/27/24 04:00 124/61 05/27/24 04:00 124/61 05/27/24 04:00 124/61 05/27/24 03:45 129/58 L 05/27/24 03:45 129/58 L 05/27/24 03:30 130/60 05/27/24 03:21 99.3 F 109 H 18 97 05/27/24 03:15 123/62 05/27/24 03:15 123/62 05/27/24 03:15 123/62 05/27/24 03:06 99.3 F 110 H 20 98 05/27/24 02:45 130/66 05/27/24 02:45 130/66 05/27/24 02:42 99.3 F 104 H 19 97 05/27/24 02:30 119/67 05/27/24 02:30 119/67 05/27/24 02:27 99.1 F 105 H 19 98 05/27/24 02:15 99.1 F 102 H 18 97 05/27/24 02:15 123/68 05/27/24 02:02 123/69 05/27/24 02:02 123/69 05/27/24 02:02 123/69 05/27/24 02:00 99.1 F 103 H 20 97 05/27/24 01:03 99.0 F 100 H 19 99 05/27/24 01:00 128/67 05/27/24 00:54 99.0 F 101 H 18 98 05/27/24 00:45 125/68 05/27/24 00:45 125/68 05/27/24 00:45 125/68 05/27/24 00:30 121/70 05/27/24 00:27 99.0 F 102 H 18 98 05/27/24 00:15 99.1 F 101 H 18 97 05/27/24 00:15 125/71 05/27/24 00:00 116/66 05/27/24 00:00 116/66 05/27/24 00:00 116/66 05/27/24 00:00 99.1 F 108 H 18 99 05/26/24 23:45 117/73 05/26/24 23:42 99.3 F 97 H 19 97 05/26/24 23:35 125/67 05/26/24 23:33 99.5 F 102 H 19 99 05/26/24 23:15 99.7 F H 115 H 22 98 05/26/24 23:15 116/70 05/26/24 23:15 116/70 05/26/24 23:12 99.7 F H 100 H 20 99 05/26/24 23:00 110/67 05/26/24 23:00 110/67 05/26/24 22:45 114/68 05/26/24 22:45 99.7 F H 115 H 21 99 05/26/24 22:39 99.7 F H 112 H 23 99 05/26/24 22:30 122/68 05/26/24 22:27 99.7 F H 111 H 20 99 05/26/24 22:21 99.7 F H 114 H 22 99 05/26/24 22:15 117/73 05/26/24 22:15 117/73 05/26/24 22:10 109/68 05/26/24 22:09 99.7 F H 126 H 22 100 05/26/24 22:05 117/77 05/26/24 22:05 117/77 05/26/24 22:05 117/77 05/26/24 22:05 117/77 05/26/24 22:03 99.7 F H 138 H 15 100 05/26/24 22:00 112/75 05/26/24 22:00 112/75 05/26/24 22:00 112/75 05/26/24 21:57 99.7 F H 105 H 20 99 05/26/24 21:55 112/66 05/26/24 21:55 112/66 05/26/24 21:55 112/66 05/26/24 21:55 112/66 05/26/24 21:54 99.7 F H 109 H 23 98 05/26/24 21:50 115/67 05/26/24 21:50 115/67 05/26/24 21:50 115/67 05/26/24 21:50 115/67 05/26/24 21:48 99.7 F H 111 H 20 98 05/26/24 21:45 116/71 05/26/24 21:45 116/71 05/26/24 21:45 116/71 05/26/24 21:45 99.9 F H 109 H 20 99 05/26/24 21:40 107/70 05/26/24 21:40 107/70 05/26/24 21:40 107/70 05/26/24 21:40 107/70 05/26/24 21:35 113/66 05/26/24 21:35 113/66 05/26/24 21:30 114/67 05/26/24 21:27 99.9 F H 113 H 21 114/68 99 05/26/24 21:22 116/76 05/26/24 21:09 99.9 F H 113 H 18 120/80 98 05/26/24 20:57 114 H 24 99 05/26/24 20:51 112 H 17 98 05/26/24 20:15 116 H 32 H 99 05/26/24 20:00 120/83 05/26/24 19:53 97.2 F L 115 H 18 104/71 98 O2 Del Method 05/27/24 06:00 05/27/24 05:57 05/27/24 05:45 05/27/24 05:15 05/27/24 05:12 05/27/24 05:00 05/27/24 05:00 05/27/24 05:00 05/27/24 05:00 05/27/24 04:45 05/27/24 04:45 05/27/24 04:42 05/27/24 04:21 05/27/24 04:15 05/27/24 04:15 05/27/24 04:15 05/27/24 04:15 05/27/24 04:15 05/27/24 04:15 05/27/24 04:00 05/27/24 04:00 05/27/24 04:00 05/27/24 04:00 05/27/24 04:00 05/27/24 03:45 05/27/24 03:45 05/27/24 03:30 05/27/24 03:21 05/27/24 03:15 05/27/24 03:15 05/27/24 03:15 05/27/24 03:06 05/27/24 02:45 05/27/24 02:45 05/27/24 02:42 05/27/24 02:30 05/27/24 02:30 05/27/24 02:27 05/27/24 02:15 05/27/24 02:15 05/27/24 02:02 05/27/24 02:02 05/27/24 02:02 05/27/24 02:00 05/27/24 01:03 05/27/24 01:00 05/27/24 00:54 05/27/24 00:45 05/27/24 00:45 05/27/24 00:45 05/27/24 00:30 05/27/24 00:27 05/27/24 00:15 05/27/24 00:15 05/27/24 00:00 05/27/24 00:00 05/27/24 00:00 05/27/24 00:00 05/26/24 23:45 05/26/24 23:42 05/26/24 23:35 05/26/24 23:33 05/26/24 23:15 05/26/24 23:15 05/26/24 23:15 05/26/24 23:12 05/26/24 23:00 05/26/24 23:00 05/26/24 22:45 05/26/24 22:45 05/26/24 22:39 05/26/24 22:30 05/26/24 22:27 05/26/24 22:21 05/26/24 22:15 05/26/24 22:15 05/26/24 22:10 05/26/24 22:09 05/26/24 22:05 05/26/24 22:05 05/26/24 22:05 05/26/24 22:05 05/26/24 22:03 05/26/24 22:00 05/26/24 22:00 05/26/24 22:00 05/26/24 21:57 05/26/24 21:55 05/26/24 21:55 05/26/24 21:55 05/26/24 21:55 05/26/24 21:54 05/26/24 21:50 05/26/24 21:50 05/26/24 21:50 05/26/24 21:50 05/26/24 21:48 05/26/24 21:45 05/26/24 21:45 05/26/24 21:45 05/26/24 21:45 05/26/24 21:40 05/26/24 21:40 05/26/24 21:40 05/26/24 21:40 05/26/24 21:35 05/26/24 21:35 05/26/24 21:30 05/26/24 21:27 05/26/24 21:22 05/26/24 21:09 05/26/24 20:57 05/26/24 20:51 05/26/24 20:15 05/26/24 20:00 05/26/24 19:53 Room Air PG Care Time/CCT Total # of Minutes Spent Total Time Spent with Patient: Total time spent is greater than 50% in coordination of care (as documented) at patient's floor/unit and/or counseling patient: Coding Level of Care Code 00142 Post Operative Follow-Up Diagnoses Rectal bleed K62.5
[2024-05-27] MEDS: ONDANSETRON INJ 2 MG/ML 2 ML VIAL IV PRN (08:02)
--- NOTE | 2024-05-27 08:35 | Gastrointestinal Consultation ---
Date of Consultation May 27, 2024 Assessment & Plan (1) Rectal bleed: Patient with rectal bleeding given the profuse amount of bleeding most likely etiology would be diverticular although she is a little young for diverticuli and her NG lavage was negative at the current time I would 1. Plan for colonoscopy urgently 2. Monitor H&H and transfuse to keep above 8 3. If colonoscopy is negative we will also do EGD Further recommendations after endoscopy thank you for allowing us to take part in the care of your patient we will continue to follow her with you History of Present Illness Reason for Consultation: Lower GI bleeding Requesting Physician: Nahid Garrett Attending Physician: Lambert Kebede, DO History of Present Illness A pleasant 28-year-old female who had a recent hemorrhoidectomy and was doing well. She developed rectal bleeding yesterday she states the bleeding was profuse and to the extent that she was actually taken to the OR to evaluate for the hemorrhoidectomy site as per the surgical notes and in speaking with the surgical team there was no bleeding from the hemorrhoidal side and it actually looked good but there was actually blood coming higher up she denies any significant rectal bleeding in the past also she really does not have any GI symptoms other than this rectal bleeding no dysphagia or reflux nausea or vomiting per se no abdominal pain no history of bleeding in the past either other than the same mild bleeding with bowel movements she had an NG tube placed yesterday evening and the NG lavage was clear she got 1 unit of blood and currently she feels good without any active complaints Allergies Allergy/AdvReac Type Severity Reaction Status Date / Time No Known Allergies Allergy Verified 03/23/20 09:10 Home Medications Medication Instructions Recorded Confirmed Type levonorgestrel 17.5 mcg/24 hr (up 1 device intrauterine DIRECTED 03/23/20 05/26/24 History to 5 yrs) 19.5mg intrauterine device (Kyleena) acetaminophen 500 mg tablet 1,000 mg PO BID PRN Pain 05/26/24 05/26/24 History docusate sodium 100 mg capsule 100 mg PO DAILY #20 caps 05/26/24 05/26/24 Rx (Colace) Patient History Medical History (Updated 05/26/24 @ 16:53 by Isaac Fish MD) Anxiety Family History Grandmother (Maternal) Breast cancer Grandmother (Paternal) Breast cancer Other No pertinent family history in first degree relatives Denies family history of Ovarian cancer Colorectal cancer Uterine cancer Social History Smoking Status: Never smoker Hx Alcohol Use: No Hx Substance Use: No Preferred Language: Irish Communication Ability: Effective Cocktail Server Required: No Beliefs That Will Affect Care: None Current Living Situation: Family Feels Safe at Home: Yes Assistive Devices: None Review of Systems Review of Systems: A 10 point review of systems was done Physical Exam Constitutional: WD/WN, vitals as above Respiratory: normal respiratory effort, lungs clear to auscultation Cardiovascular: RRR, no murmur, no edema Gastrointestinal (Abdomen): normal bowel sounds, soft, nontender, no hepatosplenomegaly Her stools were dark brown at present Results & Data Vital Signs (Past 12 Hours) Vital Signs Temp Pulse Resp BP Pulse Ox O2 Del Method 05/27/24 07:51 116 H 05/27/24 07:30 119/66 05/27/24 07:30 37.5 C 108 H 18 98 Room Air 05/27/24 07:16 118/66 05/27/24 07:03 37.7 C H 126 H 23 97 05/27/24 07:00 121/58 L 05/27/24 06:54 37.6 C H 115 H 21 96 05/27/24 06:45 118/58 L 05/27/24 06:42 37.6 C H 114 H 20 96 05/27/24 06:30 116/58 L 05/27/24 06:30 37.6 C H 121 H 19 98 05/27/24 06:15 125/60 05/27/24 06:03 37.5 C 108 H 20 97 05/27/24 06:00 116/65 05/27/24 05:57 37.5 C 109 H 20 97 05/27/24 05:45 118/64 05/27/24 05:15 119/63 05/27/24 05:12 37.4 C 109 H 19 98 05/27/24 05:00 37.4 C 109 H 22 98 05/27/24 05:00 118/62 05/27/24 05:00 118/62 05/27/24 05:00 118/62 05/27/24 04:45 119/68 05/27/24 04:45 119/68 05/27/24 04:42 113/68 05/27/24 04:21 37.6 C H 05/27/24 04:15 92/55 L 05/27/24 04:15 92/55 L 05/27/24 04:15 92/55 L 05/27/24 04:15 92/55 L 05/27/24 04:15 92/55 L 05/27/24 04:15 37.5 C 116 H 23 99 05/27/24 04:00 37.5 C 119 H 20 96 05/27/24 04:00 124/61 05/27/24 04:00 124/61 05/27/24 04:00 124/61 05/27/24 04:00 124/61 05/27/24 03:45 129/58 L 05/27/24 03:45 129/58 L 05/27/24 03:30 130/60 05/27/24 03:21 37.4 C 109 H 18 97 05/27/24 03:15 123/62 05/27/24 03:15 123/62 05/27/24 03:15 123/62 05/27/24 03:06 37.4 C 110 H 20 98 05/27/24 02:45 130/66 05/27/24 02:45 130/66 05/27/24 02:42 37.4 C 104 H 19 97 05/27/24 02:30 119/67 05/27/24 02:30 119/67 05/27/24 02:27 37.3 C 105 H 19 98 05/27/24 02:15 37.3 C 102 H 18 97 05/27/24 02:15 123/68 05/27/24 02:02 123/69 05/27/24 02:02 123/69 05/27/24 02:02 123/69 05/27/24 02:00 37.3 C 103 H 20 97 05/27/24 01:03 37.2 C 100 H 19 99 05/27/24 01:00 128/67 05/27/24 00:54 37.2 C 101 H 18 98 05/27/24 00:45 125/68 05/27/24 00:45 125/68 05/27/24 00:45 125/68 05/27/24 00:30 121/70 05/27/24 00:27 37.2 C 102 H 18 98 05/27/24 00:15 37.3 C 101 H 18 97 05/27/24 00:15 125/71 05/27/24 00:00 116/66 05/27/24 00:00 116/66 05/27/24 00:00 116/66 05/27/24 00:00 37.3 C 108 H 18 99 05/26/24 23:45 117/73 05/26/24 23:42 37.4 C 97 H 19 97 05/26/24 23:35 125/67 05/26/24 23:33 37.5 C 102 H 19 99 05/26/24 23:15 37.6 C H 115 H 22 98 05/26/24 23:15 116/70 05/26/24 23:15 116/70 05/26/24 23:12 37.6 C H 100 H 20 99 05/26/24 23:00 110/67 05/26/24 23:00 110/67 05/26/24 22:45 114/68 05/26/24 22:45 37.6 C H 115 H 21 99 05/26/24 22:39 37.6 C H 112 H 23 99 05/26/24 22:30 122/68 05/26/24 22:27 37.6 C H 111 H 20 99 05/26/24 22:21 37.6 C H 114 H 22 99 05/26/24 22:15 117/73 05/26/24 22:15 117/73 05/26/24 22:10 109/68 05/26/24 22:09 37.6 C H 126 H 22 100 05/26/24 22:05 117/77 05/26/24 22:05 117/77 05/26/24 22:05 117/77 05/26/24 22:05 117/77 05/26/24 22:03 37.6 C H 138 H 15 100 05/26/24 22:00 112/75 05/26/24 22:00 112/75 05/26/24 22:00 112/75 05/26/24 21:57 37.6 C H 105 H 20 99 05/26/24 21:55 112/66 05/26/24 21:55 112/66 05/26/24 21:55 112/66 05/26/24 21:55 112/66 05/26/24 21:54 37.6 C H 109 H 23 98 05/26/24 21:50 115/67 05/26/24 21:50 115/67 05/26/24 21:50 115/67 05/26/24 21:50 115/67 05/26/24 21:48 37.6 C H 111 H 20 98 05/26/24 21:45 116/71 05/26/24 21:45 116/71 05/26/24 21:45 116/71 05/26/24 21:45 37.7 C H 109 H 20 99 05/26/24 21:40 107/70 05/26/24 21:40 107/70 05/26/24 21:40 107/70 05/26/24 21:40 107/70 05/26/24 21:35 113/66 05/26/24 21:35 113/66 05/26/24 21:30 114/67 05/26/24 21:27 37.7 C H 113 H 21 114/68 99 05/26/24 21:22 116/76 05/26/24 21:09 37.7 C H 113 H 18 120/80 98 05/26/24 20:57 114 H 24 99 05/26/24 20:51 112 H 17 98 PG Care Time/CCT Total # of Minutes Spent Total Time Spent with Patient: Total time spent is greater than 50% in coordination of care (as documented) at patient's floor/unit and/or counseling patient: Coding Level of Care Code 57781 IN/OBS CONSULT LVL 3,45M Diagnoses Rectal bleed K62.5
--- NOTE | 2024-05-27 08:53 | Critical Care Progress Note ---
Date of Service May 27, 2024 Assessment & Plan (1) Rectal bleed: (2) Postoperative hemorrhage of anus: (3) Syncope and collapse: (4) CHI (closed head injury): Plan Reason Critically Ill: Suspected acute blood loss from GI tract unspecified source, requiring blood transfusion. Taken urgently to OR without identification of bleeding from previous surgical sites. CT angio and veno grams negative at this time for acute hemorrhage Neuro: syncope with head strike in ER with head laceration/closed head injury- [facility] ICU: NEGATIVE - Head laceration with gel closure no hematoma or drainage noted Cardiac - no acute needs at this time - hemodynamics preserved- mild tachycardia following NGT placement and IV attempts- follow closely - see GI/Heme for further plan Respiratory - NO acute needs - extubated in OR to PACU without difficulties, phonating well and on room air GI - Acute blood loss with unspecified source- presumed GI -GI following - CT angio and venograms obtained without report of acute loss identified -Repeat bowel prep as not cleared stool - keep NGT in place RENAL/LYTES - NO acute needs - ICU electrolyte protocol - Peterson to gravity - draining dilute yellow urine ENDO - no acute needs HEME - acute blood loss anemia -Received 1 unit packed red blood cells from GI -Trend H&H every 6 hours ID - NO concern at this time for infective causes LINES/IV ACCESS - PIV x3 Continue use of these lines DVT PROPHYLAXIS - SCDS, ambulation- hold chemoprophylaxis in setting of acute blood loss DISPO: ICU until EGD to possibly localize source Clinical update 1430: Reviewed colonoscopy results. No active interventions. Okay to start clears. Trend H&H Admission and Anticipated Discharge Date Admission Date: May 26, 2024 Supervising Physician Co-Signing Physician Notes I have personally spent 30 minutes of time in the direct management of this patient. This is a life/limb threatening event. This includes time spent evaluating patient, direct bedside care, chart review, placing orders, interpretation of diagnostic studies, discussion with consultants, patient, and family members, as well as other required patient management activities. This time is exclusive of all separately billable procedures, and teaching time and separate from and in addition to any other critical care service time. Subjective No new complaints. No chest pain no dizziness no lightheadedness. Physical Exam Physical Exam: General: Alert. nontoxic. Skin: Warm, dry, Head: Atraumatic Ears, nose, mouth and throat: airway patent, NG tube present Cardiovascular: Normal peripheral perfusion Respiratory: no respiratory distress Gastrointestinal: Non distended Musculoskeletal: No deformity Results & Data Results & Data Vital Signs (Past 12 Hours) Vital Signs Temp Pulse Resp BP Pulse Ox O2 Del Method 05/27/24 07:51 116 H 05/27/24 07:30 119/66 05/27/24 07:30 37.5 C 108 H 18 98 Room Air 05/27/24 07:16 118/66 05/27/24 07:03 37.7 C H 126 H 23 97 05/27/24 07:00 121/58 L 05/27/24 06:54 37.6 C H 115 H 21 96 05/27/24 06:45 118/58 L 05/27/24 06:42 37.6 C H 114 H 20 96 05/27/24 06:30 116/58 L 05/27/24 06:30 37.6 C H 121 H 19 98 05/27/24 06:15 125/60 05/27/24 06:03 37.5 C 108 H 20 97 05/27/24 06:00 116/65 05/27/24 05:57 37.5 C 109 H 20 97 05/27/24 05:45 118/64 05/27/24 05:15 119/63 05/27/24 05:12 37.4 C 109 H 19 98 05/27/24 05:00 37.4 C 109 H 22 98 05/27/24 05:00 118/62 05/27/24 05:00 118/62 05/27/24 05:00 118/62 05/27/24 04:45 119/68 05/27/24 04:45 119/68 05/27/24 04:42 113/68 05/27/24 04:21 37.6 C H 05/27/24 04:15 92/55 L 05/27/24 04:15 92/55 L 05/27/24 04:15 92/55 L 05/27/24 04:15 92/55 L 05/27/24 04:15 92/55 L 05/27/24 04:15 37.5 C 116 H 23 99 05/27/24 04:00 37.5 C 119 H 20 96 05/27/24 04:00 124/61 05/27/24 04:00 124/61 05/27/24 04:00 124/61 05/27/24 04:00 124/61 05/27/24 03:45 129/58 L 05/27/24 03:45 129/58 L 05/27/24 03:30 130/60 05/27/24 03:21 37.4 C 109 H 18 97 05/27/24 03:15 123/62 05/27/24 03:15 123/62 05/27/24 03:15 123/62 05/27/24 03:06 37.4 C 110 H 20 98 05/27/24 02:45 130/66 05/27/24 02:45 130/66 05/27/24 02:42 37.4 C 104 H 19 97 05/27/24 02:30 119/67 05/27/24 02:30 119/67 05/27/24 02:27 37.3 C 105 H 19 98 05/27/24 02:15 37.3 C 102 H 18 97 05/27/24 02:15 123/68 05/27/24 02:02 123/69 05/27/24 02:02 123/69 05/27/24 02:02 123/69 05/27/24 02:00 37.3 C 103 H 20 97 05/27/24 01:03 37.2 C 100 H 19 99 05/27/24 01:00 128/67 05/27/24 00:54 37.2 C 101 H 18 98 05/27/24 00:45 125/68 05/27/24 00:45 125/68 05/27/24 00:45 125/68 05/27/24 00:30 121/70 05/27/24 00:27 37.2 C 102 H 18 98 05/27/24 00:15 37.3 C 101 H 18 97 05/27/24 00:15 125/71 05/27/24 00:00 116/66 05/27/24 00:00 116/66 05/27/24 00:00 116/66 05/27/24 00:00 37.3 C 108 H 18 99 05/26/24 23:45 117/73 05/26/24 23:42 37.4 C 97 H 19 97 05/26/24 23:35 125/67 05/26/24 23:33 37.5 C 102 H 19 99 05/26/24 23:15 37.6 C H 115 H 22 98 05/26/24 23:15 116/70 05/26/24 23:15 116/70 05/26/24 23:12 37.6 C H 100 H 20 99 05/26/24 23:00 110/67 05/26/24 23:00 110/67 05/26/24 22:45 114/68 05/26/24 22:45 37.6 C H 115 H 21 99 05/26/24 22:39 37.6 C H 112 H 23 99 05/26/24 22:30 122/68 05/26/24 22:27 37.6 C H 111 H 20 99 05/26/24 22:21 37.6 C H 114 H 22 99 05/26/24 22:15 117/73 05/26/24 22:15 117/73 05/26/24 22:10 109/68 05/26/24 22:09 37.6 C H 126 H 22 100 05/26/24 22:05 117/77 05/26/24 22:05 117/77 05/26/24 22:05 117/77 05/26/24 22:05 117/77 05/26/24 22:03 37.6 C H 138 H 15 100 05/26/24 22:00 112/75 05/26/24 22:00 112/75 05/26/24 22:00 112/75 05/26/24 21:57 37.6 C H 105 H 20 99 05/26/24 21:55 112/66 05/26/24 21:55 112/66 05/26/24 21:55 112/66 05/26/24 21:55 112/66 05/26/24 21:54 37.6 C H 109 H 23 98 05/26/24 21:50 115/67 05/26/24 21:50 115/67 05/26/24 21:50 115/67 05/26/24 21:50 115/67 05/26/24 21:48 37.6 C H 111 H 20 98 05/26/24 21:45 116/71 05/26/24 21:45 116/71 05/26/24 21:45 116/71 05/26/24 21:45 37.7 C H 109 H 20 99 05/26/24 21:40 107/70 05/26/24 21:40 107/70 05/26/24 21:40 107/70 05/26/24 21:40 107/70 05/26/24 21:35 113/66 05/26/24 21:35 113/66 05/26/24 21:30 114/67 05/26/24 21:27 37.7 C H 113 H 21 114/68 99 05/26/24 21:22 116/76 05/26/24 21:09 37.7 C H 113 H 18 120/80 98 05/26/24 20:57 114 H 24 99 05/26/24 20:51 112 H 17 98 Critical Care Results & Data Vital Signs (Past 12 Hours) Vital Signs Temp Pulse Resp BP Pulse Ox O2 Del Method 05/27/24 07:51 116 H 05/27/24 07:30 119/66 05/27/24 07:30 37.5 C 108 H 18 98 Room Air 05/27/24 07:16 118/66 05/27/24 07:03 37.7 C H 126 H 23 97 05/27/24 07:00 121/58 L 05/27/24 06:54 37.6 C H 115 H 21 96 05/27/24 06:45 118/58 L 05/27/24 06:42 37.6 C H 114 H 20 96 05/27/24 06:30 116/58 L 05/27/24 06:30 37.6 C H 121 H 19 98 05/27/24 06:15 125/60 05/27/24 06:03 37.5 C 108 H 20 97 05/27/24 06:00 116/65 05/27/24 05:57 37.5 C 109 H 20 97 05/27/24 05:45 118/64 05/27/24 05:15 119/63 05/27/24 05:12 37.4 C 109 H 19 98 05/27/24 05:00 37.4 C 109 H 22 98 05/27/24 05:00 118/62 05/27/24 05:00 118/62 05/27/24 05:00 118/62 05/27/24 04:45 119/68 05/27/24 04:45 119/68 05/27/24 04:42 113/68 05/27/24 04:21 37.6 C H 05/27/24 04:15 92/55 L 05/27/24 04:15 92/55 L 05/27/24 04:15 92/55 L 05/27/24 04:15 92/55 L 05/27/24 04:15 92/55 L 05/27/24 04:15 37.5 C 116 H 23 99 05/27/24 04:00 37.5 C 119 H 20 96 05/27/24 04:00 124/61 05/27/24 04:00 124/61 05/27/24 04:00 124/61 05/27/24 04:00 124/61 05/27/24 03:45 129/58 L 05/27/24 03:45 129/58 L 05/27/24 03:30 130/60 05/27/24 03:21 37.4 C 109 H 18 97 05/27/24 03:15 123/62 05/27/24 03:15 123/62 05/27/24 03:15 123/62 05/27/24 03:06 37.4 C 110 H 20 98 05/27/24 02:45 130/66 05/27/24 02:45 130/66 05/27/24 02:42 37.4 C 104 H 19 97 05/27/24 02:30 119/67 05/27/24 02:30 119/67 05/27/24 02:27 37.3 C 105 H 19 98 05/27/24 02:15 37.3 C 102 H 18 97 05/27/24 02:15 123/68 05/27/24 02:02 123/69 05/27/24 02:02 123/69 05/27/24 02:02 123/69 05/27/24 02:00 37.3 C 103 H 20 97 05/27/24 01:03 37.2 C 100 H 19 99 05/27/24 01:00 128/67 05/27/24 00:54 37.2 C 101 H 18 98 05/27/24 00:45 125/68 05/27/24 00:45 125/68 05/27/24 00:45 125/68 05/27/24 00:30 121/70 05/27/24 00:27 37.2 C 102 H 18 98 05/27/24 00:15 37.3 C 101 H 18 97 05/27/24 00:15 125/71 05/27/24 00:00 116/66 05/27/24 00:00 116/66 05/27/24 00:00 116/66 05/27/24 00:00 37.3 C 108 H 18 99 05/26/24 23:45 117/73 05/26/24 23:42 37.4 C 97 H 19 97 05/26/24 23:35 125/67 05/26/24 23:33 37.5 C 102 H 19 99 05/26/24 23:15 37.6 C H 115 H 22 98 05/26/24 23:15 116/70 05/26/24 23:15 116/70 05/26/24 23:12 37.6 C H 100 H 20 99 05/26/24 23:00 110/67 05/26/24 23:00 110/67 05/26/24 22:45 114/68 05/26/24 22:45 37.6 C H 115 H 21 99 05/26/24 22:39 37.6 C H 112 H 23 99 05/26/24 22:30 122/68 05/26/24 22:27 37.6 C H 111 H 20 99 05/26/24 22:21 37.6 C H 114 H 22 99 05/26/24 22:15 117/73 05/26/24 22:15 117/73 05/26/24 22:10 109/68 05/26/24 22:09 37.6 C H 126 H 22 100 05/26/24 22:05 117/77 05/26/24 22:05 117/77 05/26/24 22:05 117/77 05/26/24 22:05 117/77 05/26/24 22:03 37.6 C H 138 H 15 100 05/26/24 22:00 112/75 05/26/24 22:00 112/75 05/26/24 22:00 112/75 05/26/24 21:57 37.6 C H 105 H 20 99 05/26/24 21:55 112/66 12/22/24 21:55 112/66 05/26/24 21:55 112/66 05/26/24 21:55 112/66 05/26/24 21:54 37.6 C H 109 H 23 98 05/26/24 21:50 115/67 05/26/24 21:50 115/67 05/26/24 21:50 115/67 05/26/24 21:50 115/67 05/26/24 21:48 37.6 C H 111 H 20 98 05/26/24 21:45 116/71 05/26/24 21:45 116/71 05/26/24 21:45 116/71 05/26/24 21:45 37.7 C H 109 H 20 99 05/26/24 21:40 107/70 05/26/24 21:40 107/70 05/26/24 21:40 107/70 05/26/24 21:40 107/70 05/26/24 21:35 113/66 05/26/24 21:35 113/66 05/26/24 21:30 114/67 05/26/24 21:27 37.7 C H 113 H 21 114/68 99 05/26/24 21:22 116/76 05/26/24 21:09 37.7 C H 113 H 18 120/80 98 05/26/24 20:57 114 H 24 99 05/26/24 20:51 112 H 17 98 Lab & Micro Results (Past 24 Hours) RBC 2.84 M/uL (4.20-5.40) L 05/27/24 WBC 14.75 K/ul (4.8-10.8) H 05/27/24 Hgb 8.6 g/dl (12.0-16.0) L 05/27/24 Hct 25.2 % (37.0-47.0) L 05/27/24 MCV 88.7 fL (80.0-100.0) 05/27/24 MCH 30.3 pg (25.0-34.0) 05/27/24 MCHC 34.1 g/dL (32.0-36.0) 05/27/24 RDW Standard Deviation 44.2 fL (36.4-46.3) 05/27/24 RDW Coefficient of Variation 13.6 % (11.5-14.5) 05/27/24 Plt Count 210 K/uL (130-400) 05/27/24 MPV 10.6 fL (9.4-12.4) 05/27/24 Neutrophils (%) (Auto) 78.4 % 05/27/24 Lymphocytes (%) (Auto) 14.8 % 05/27/24 Monocytes # (Auto) 0.92 K/uL (0.11-0.59) H 05/27/24 Eosinophils # (Auto) 0.00 K/uL (0.00-0.50) 05/27/24 Immature Granulocyte % (Auto) 0.4 % 05/27/24 Neutrophils # (Auto) 11.55 K/uL (1.40-6.50) H 05/27/24 Lymphocytes # (Auto) 2.19 K/uL (1.20-3.40) 05/27/24 Monocytes # (Auto) 0.92 K/uL (0.11-0.59) H 05/27/24 Eosinophils # (Auto) 0.00 K/uL (0.00-0.50) 05/27/24 Basophils # (Auto) 0.03 K/uL (0.00-0.20) 05/27/24 Immature Granulocyte # (Auto) 0.06 K/uL (0.01-0.20) 4 Phosphorus Level 3.1 mg/dl (2.5-4.9) 05/26/24 Mg 1.7 mg/dl (1.7-2.4) 05/26/24 23:28 Ionized Calcium 1.11 mmol/L (1.12-1.32) L 05/26/24 18:53 Prothromb Time International Ratio 1.1 (0.9-1.1) 05/27/24 10:1 1 Diagnostic Findings (Past 24 Hours) Head CT 05/26/24 14:40 EXAM: CT Head Without Intravenous Contrast INDICATION: Trauma. TECHNIQUE: Axial computed tomography images of the head/brain without intravenous contrast. Sagittal and/or coronal reformats are provided. Sagittal and coronal reformatted images were created and reviewed. This CT exam was performed using one or more of the following dose reduction techniques: automated exposure control, adjustment of the mA and/or kV according to patient size, and/or use of iterative reconstruction technique. COMPARISON: No relevant prior studies available. FINDINGS: Limitations: None. Brain and extra-axial spaces: No abnormality noted. No hemorrhage. No significant white matter disease. No edema. No ventriculomegaly. Bones/joints: No acute changes. Soft tissues: No significant abnormality noted. Vasculature: No acute abnormality noted. Sinuses: No layering fluid in the visualized portions of the paranasal sinuses. Mastoid air cells: No mastoid effusion. Orbits: No significant abnormality noted. IMPRESSION: No abnormality noted. ACT 112: Negative or not required by law. Electronically signed by Shahrzad Clarke 05-26-2024 3:00 PM Abdomen/Pelvis CTA 05/26/24 18:05 EXAM: CT Angiogram/Venogram abdomen and Pelvis Without and With Intravenous Contrast INDICATION: Rectal bleeding post hemorrhoidectomy 12 days ago. Hematuria. TECHNIQUE: Axial computed tomographic angiography images of the abdomen and pelvis without and with intravenous contrast. Sagittal and coronal reformatted images were created and reviewed. Images obtained in the arterial and portal venous phases. This CT exam was performed using one or more of the following dose reduction techniques: automated exposure control, adjustment of the mA and/or kV according to patient size, and/or use of iterative reconstruction technique. MIP reconstructed images were created and reviewed. CONTRAST: 119 ml of Optiray 320 was administered intravenously. COMPARISON: No relevant prior studies available. FINDINGS: VASCULATURE: Aorta: There is no aortic aneurysm or dissection. Celiac trunk and mesenteric arteries: No acute change noted. No occlusion or significant stenosis. Renal arteries: No acute change noted. No occlusion or significant stenosis. Iliac arteries: No acute change noted. No occlusion or significant stenosis. Iliac veins: Imaging during venous phase shows homogeneous opacification of the femoral and iliac veins as well as the IVC. Lung bases: No abnormality noted. No mass. No consolidation. ABDOMEN: Liver: No abnormality noted. No mass. Gallbladder and bile ducts: No abnormality noted. No calcified stones. No ductal dilation. Pancreas: No abnormality noted. No ductal dilation. No mass. Spleen: No abnormality noted. No splenomegaly. Adrenals: No abnormality noted. No mass. Kidneys and ureters: No abnormality noted. No obstructing stones. No hydronephrosis. No solid mass. Stomach and bowel: There is mild rectal thinning and inflammation. No evidence of acute hemorrhage. No perirectal fluid or mass. No obstruction. PELVIS: Appendix: Well seen and appears normal. Bladder: No abnormality noted. No stones. No mass. Reproductive: Dominant follicle present in the right ovary. No further assessment required. ABDOMEN and PELVIS: Intraperitoneal space: No abnormality noted. No significant fluid collection. No free air. Bones/joints: No acute or atypical chronic changes. Soft tissues: No abnormality noted. Lymph nodes: No abnormality noted. No enlarged lymph nodes. Tubes, lines and devices: Intrauterine contraceptive device in good position. IMPRESSION: Mild rectal thickening without fluid collection or active hemorrhage. ACT 112: Negative or not required by law. Electronically signed by Shahrzad Clarke 05-26-2024 7:[address] 05/26/24 18:28 EXAM: CT Angiogram/Venogram abdomen and Pelvis Without and With Intravenous Contrast INDICATION: Rectal bleeding post hemorrhoidectomy 12 days ago. Hematuria. TECHNIQUE: Axial computed tomographic angiography images of the abdomen and pelvis without and with intravenous contrast. Sagittal and coronal reformatted images were created and reviewed. Images obtained in the arterial and portal venous phases. This CT exam was performed using one or more of the following dose reduction techniques: automated exposure control, adjustment of the mA and/or kV according to patient size, and/or use of iterative reconstruction technique. MIP reconstructed images were created and reviewed. CONTRAST: 119 ml of Optiray 320 was administered intravenously. COMPARISON: No relevant prior studies available. FINDINGS: VASCULATURE: Aorta: There is no aortic aneurysm or dissection. Celiac trunk and mesenteric arteries: No acute change noted. No occlusion or significant stenosis. Renal arteries: No acute change noted. No occlusion or significant stenosis. Iliac arteries: No acute change noted. No occlusion or significant stenosis. Iliac veins: Imaging during venous phase shows homogeneous opacification of the femoral and iliac veins as well as the IVC. Lung bases: No abnormality noted. No mass. No consolidation. ABDOMEN: Liver: No abnormality noted. No mass. Gallbladder and bile ducts: No abnormality noted. No calcified stones. No ductal dilation. Pancreas: No abnormality noted. No ductal dilation. No mass. Spleen: No abnormality noted. No splenomegaly. Adrenals: No abnormality noted. No mass. Kidneys and ureters: No abnormality noted. No obstructing stones. No hydronephrosis. No solid mass. Stomach and bowel: There is mild rectal thinning and inflammation. No evidence of acute hemorrhage. No perirectal fluid or mass. No obstruction. PELVIS: Appendix: Well seen and appears normal. Bladder: No abnormality noted. No stones. No mass. Reproductive: Dominant follicle present in the right ovary. No further assessment required. ABDOMEN and PELVIS: Intraperitoneal space: No abnormality noted. No significant fluid collection. No free air. Bones/joints: No acute or atypical chronic changes. Soft tissues: No abnormality noted. Lymph nodes: No abnormality noted. No enlarged lymph nodes. Tubes, lines and devices: Intrauterine contraceptive device in good position. IMPRESSION: Mild rectal thickening without fluid collection or active hemorrhage. ACT 112: Negative or not required by law. Electronically signed by Shahrzad Clarke 05-26-2024 7:06 PM KUB X-Ray 05/26/24 20:03 Exam(s): XR KUB EXAM: XR Abdomen, 1 View CLINICAL HISTORY: NGT placement. TECHNIQUE: Frontal supine view of the abdomen/pelvis. COMPARISON: 01/31/2019. FINDINGS: Gastrointestinal tract: NG tube is present with the tip coiled in the stomach. No dilation. Bones/joints: Unremarkable. No acute fracture. IMPRESSION: And the tube coiled in the stomach. Electronically signed by: Deandre Erazo M.D. 05/26/24 22:36 PM I & O Totals 24 Hours 05/26/24 05/27/24 05/28/24 06:59 06:59 06:59 Intake Total 3894.917 / 3894.917 400 / 400 Output Total 6400 / 6400 250 / 250 Balance -2505.083 / -2505.083 150 / 150 Cumulative 05/26/24 11:14 thru 05/27/24 08:00 Intake Total 4294.917 Output Total 6650 Balance -2355.083 RT Ventilator Mngmt (Last Documented) Ventilator Ordered Settings Respiratory Rate 18 05/27/24 07:30 Ventilator - PT Measurements Respiratory Rate 18 Coding Level of Care Code 57938 CRITICAL CARE 1ST 30-74M Diagnoses Rectal bleed K62.5 Postoperative hemorrhage of anus K62.5; K91.89 Syncope and collapse R55 CHI (closed head injury) S09.90XA
--- NOTE | 2024-05-27 09:37 | Anesthesiology Consultation ---
Date of Service May 27, 2024 Assessment & Plan (1) Encounter for pre-operative examination: Chart Review Chart Review: Acceptable Risk for Surgery and Patient NOT seen in Pre Admission Testing Consults Requested none History Surgery Operation Date: 05/26/24 17:00 Proposed Procedures p Rectal Surgery - Lambert Kebede DO Operation Date: 05/27/24 16:30 Proposed Procedures p Colonoscopy EGD Dr. Gerry Garrett MD Height/Weight Height: 5 ft 6 in Weight: 61.2 kg Allergies Allergy/AdvReac Type Severity Reaction Status Date / Time No Known Allergies Allergy Verified 03/23/20 09:10 Medications Home Medications Medication Instructions Recorded Confirmed Last Taken levonorgestrel 17.5 mcg/24 hr (up 1 device intrauterine DIRECTED 03/23/20 05/26/24 Unknown to 5 yrs) 19.5mg intrauterine device (Kyleena) acetaminophen 500 mg tablet 1,000 mg PO BID PRN Pain 05/26/24 05/26/24 Unknown docusate sodium 100 mg capsule 100 mg PO DAILY #20 caps 05/26/24 05/26/24 Unknown (Colace) Active Medications Generic Name Dose Route Start Last Admin Trade Name Freq PRN Reason Stop Dose Admin Sodium Chloride 1,000 mls @ 125 mls/hr 05/26/24 18:34 05/27/24 04:52 Nss IV 05/27/24 18:33 125 mls/hr .Q8H HILDA Administration Acetaminophen 1,000 mg in 100 mls @ 400 mls/hr 05/26/24 20:11 05/26/24 22:01 Ofirmev IV 05/29/24 20:10 Infused Q8H PRN Infusion Fever Ondansetron HCl 4 mg 05/26/24 18:34 05/27/24 08:02 Ondansetron Inj 2 Mg/Ml 2 Ml Vial IV 06/25/24 18:33 4 mg Q4H PRN Administration Nausea And Vomiting NPO Date Last Intake of Fluids: 05/27/24 Time Last Intake of Fluids: 08:00 Last Intake of Fluids Comment: GI prep through NG tube Date Last Intake of Solids: 05/26/24 Time Last Intake of Solids: 09:30 Past Medical History Medical History (Updated 05/27/24 @ 09:36 by Dale Coffey DO) Anxiety Past Family History Family History Grandmother (Maternal) Breast cancer Grandmother (Paternal) Breast cancer Other No pertinent family history in first degree relatives Denies family history of Ovarian cancer Colorectal cancer Uterine cancer Social History Smoking Status: Never smoker Hx Alcohol Use: No Hx Substance Use: No substance use type: does not use Physical Exam Vital Signs Last Vital Signs Temp 99.7 F H 05/27/24 08:27 Pulse 106 H 05/27/24 08:27 Resp 15 05/27/24 08:27 BP 118/68 05/27/24 08:30 Pulse Ox 100 05/27/24 08:27 O2 Del Method Room Air 05/27/24 08:27 O2 Flow Rate 4 05/26/24 18:05 Testing Laboratory Results 05/27/24 06:36 05/26/24 11:44 PT 10.7 Seconds (9.0-12.0) 05/26/24 11:44 INR 1.0 (0.9-1.1) 05/26/24 11:44 APTT 28 Seconds (21-31) 05/26/24 11:44 Blood Type O Positive 05/26/24 11:44 Antibody Screen NEGATIVE 05/26/24 11:44 05/27/24 08:45 POC Glucose 107 H Electrocardiogram Date: 05/26/24 Findings: + NSR @ (059)
[2024-05-27 10:41] LABS: Basophils # (auto) 0.03 K/uL (0.00-0.20); Basophils % (auto) 0.2 %; Hematocrit (blood only) 25.2 % (37.0-47.0); Hemoglobin 8.6 g/dl (12.0-16.0); Immature Granulocytes # (auto) 0.06 K/uL (0.01-0.20); Immature Granulocytes % (auto) 0.4 %; Lymphocytes # (auto) 2.19 K/uL (1.20-3.40); Lymphocytes % (auto) 14.8 %; Mean Corpuscular Hemoglobin 30.3 pg (25.0-34.0); Mean Corpuscular Hgb Conc 34.1 g/dL (32.0-36.0); Mean Corpuscular Volume 88.7 fL (80.0-100.0); Mean Platelet Volume 10.6 fL (9.4-12.4); Monocytes # (auto) 0.92 K/uL (0.11-0.59); Monocytes % (auto) 6.2 %; Neutrophils # (auto) 11.55 K/uL (1.40-6.50); Neutrophils % (auto) 78.4 %; Platelet Count 210 K/uL (130-400); RDW Coefficient of Variation 13.6 % (11.5-14.5); RDW Standard Deviation 44.2 fL (36.4-46.3); Red Blood Count 2.84 M/uL (4.20-5.40); White Blood Count 14.75 K/ul (4.8-10.8)
[2024-05-27 11:01] LABS: INR 1.1 (0.9-1.1); Prothrombin Time 11.7 Seconds (9.0-12.0)
--- NOTE | 2024-05-27 11:29 | Electrocardiogram Report ---
Test Reason : Blood Pressure : */* mmHG Vent. Rate : 108 BPM Atrial Rate : 108 BPM P-R Int : 192 ms QRS Dur : 70 ms QT Int : 374 ms P-R-T Axes : 77 43 -77 degrees QTcB Int : 501 ms Sinus tachycardia Nonspecific ST abnormality Abnormal ECG When compared with ECG of 26-May-2024 06:15, (unconfirmed) ST now depressed in Inferior leads Non-specific change in ST segment in Anterior leads T wave inversion now evident in Inferior leads Nonspecific T wave abnormality now evident in Lateral leads Confirmed by Chang Newsome ([id number]) on 05/27/2024 11:29:18 AM Referred By: REFERRED SELF Confirmed By: Chang Newsome
--- NOTE | 2024-05-27 12:27 | GI REPORT ---
[facility] Patient: SHUN REED : 1995 Sex at : Female Age: 28 Years Procedure: Colonoscopy Date: 05/27/2024 Attending Physician: Nahid Garrett MD Referring MD: Lambert Kebede; Yoel Courtney Indications: - Rectal bleeding Medications: - Monitored Anesthesia Care Complications: - No immediate complications. Estimated Blood Loss: - Estimated blood loss: None. Procedure: - The pediatric colonoscope was introduced through the anus and advanced to the terminal ileum, with identification of the appendiceal orifice and ileocecal valve. - The colonoscopy was performed with ease. - The patient tolerated the procedure well. - The quality of the bowel preparation was excellent. - The quality of the bowel preparation was excellent. The terminal ileum, ileocecal valve, appendiceal orifice, and rectum were photographed. Findings: - In the anal region and in close proximity in the rectum there was circumferential deep ulceration with some oozing as well as a flat pigmented spot but no evidence of profuse bleeding the area was ulcerated friable and very edematous there was almost circumferentially ulcerated in the anal region Impression: - In the anal region and in close proximity in the rectum there was circumferential deep ulceration with some oozing as well as a flat pigmented spot but no evidence of profuse bleeding the area was ulcerated friable and very edematous there was almost circumferentially ulcerated in the anal region - No specimens collected. Recommendation: - Follow H&H serially Full liquid diet today surgical evaluation for possible packing Procedure Code(s): - 42154, Colonoscopy, flexible; diagnostic, including collection of specimen(s) by brushing or washing, when performed (separate procedure) CPT(R) - 2023 copyright [employer]. All Rights Reserved. The CPT codes, CCI edits and ICD codes generated are intended as suggestions and were generated based on input data. These codes are preliminary and upon professional fee coder review may be revised to meet current compliance and payer requirements. The provider is responsible for the final determination of appropriate codes, and modifiers. Nahid Garrett MD This document has been electronically signed. Note Initiated:05/27/2024 Note Completed:05/27/2024 12:26 PM [id number]
--- NOTE | 2024-05-27 12:37 | Anesthesiology Progress Note ---
Date of Service May 27, 2024 Anesthesia Post Procedure Vital Signs Vital Signs: Temp Pulse Pulse Resp BP BP Pulse Ox 05/27/24 12:24 90 18 93/63 L 100 05/27/24 11:26 99.3 F 97 H 21 114/65 97 05/27/24 08:30 118/68 05/27/24 08:27 99.7 F H 106 H 15 100 05/27/24 08:16 134/88 05/27/24 08:06 99.3 F 116 H 17 99 05/27/24 08:03 99.3 F 120 H 19 100 05/27/24 08:00 123/67 05/27/24 07:57 99.3 F 114 H 22 99 05/27/24 07:51 116 H 05/27/24 07:30 119/66 05/27/24 07:30 99.5 F 108 H 18 98 05/27/24 07:16 118/66 05/27/24 07:03 99.9 F H 126 H 23 97 05/27/24 07:00 121/58 L 05/27/24 06:54 99.7 F H 115 H 21 96 05/27/24 06:45 118/58 L 05/27/24 06:42 99.7 F H 114 H 20 96 05/27/24 06:30 116/58 L 05/27/24 06:30 99.7 F H 121 H 19 98 05/27/24 06:15 125/60 05/27/24 06:03 99.5 F 108 H 20 97 05/27/24 06:00 116/65 05/27/24 05:57 99.5 F 109 H 20 97 05/27/24 05:45 118/64 05/27/24 05:15 119/63 05/27/24 05:12 99.3 F 109 H 19 98 05/27/24 05:00 99.3 F 109 H 22 98 05/27/24 05:00 118/62 05/27/24 05:00 118/62 05/27/24 05:00 118/62 05/27/24 04:45 119/68 05/27/24 04:45 119/68 05/27/24 04:42 113/68 05/27/24 04:21 99.7 F H 05/27/24 04:15 92/55 L 05/27/24 04:15 92/55 L 05/27/24 04:15 92/55 L 05/27/24 04:15 92/55 L 05/27/24 04:15 92/55 L 05/27/24 04:15 99.5 F 116 H 23 99 05/27/24 04:00 99.5 F 119 H 20 96 05/27/24 04:00 124/61 05/27/24 04:00 124/61 05/27/24 04:00 124/61 05/27/24 04:00 124/61 05/27/24 03:45 129/58 L 05/27/24 03:45 129/58 L 05/27/24 03:30 130/60 05/27/24 03:21 99.3 F 109 H 18 97 05/27/24 03:15 123/62 05/27/24 03:15 123/62 05/27/24 03:15 123/62 05/27/24 03:06 99.3 F 110 H 20 98 05/27/24 02:45 130/66 05/27/24 02:45 130/66 05/27/24 02:42 99.3 F 104 H 19 97 05/27/24 02:30 119/67 05/27/24 02:30 119/67 05/27/24 02:27 99.1 F 105 H 19 98 05/27/24 02:15 99.1 F 102 H 18 97 05/27/24 02:15 123/68 05/27/24 02:02 123/69 05/27/24 02:02 123/69 05/27/24 02:02 123/69 05/27/24 02:00 99.1 F 103 H 20 97 05/27/24 01:03 99.0 F 100 H 19 99 05/27/24 01:00 128/67 05/27/24 00:54 99.0 F 101 H 18 98 05/27/24 00:45 125/68 05/27/24 00:45 125/68 05/27/24 00:45 125/68 05/27/24 00:30 121/70 05/27/24 00:27 99.0 F 102 H 18 98 05/27/24 00:15 99.1 F 101 H 18 97 05/27/24 00:15 125/71 05/27/24 00:00 116/66 05/27/24 00:00 116/66 05/27/24 00:00 116/66 05/27/24 00:00 99.1 F 108 H 18 99 05/26/24 23:45 117/73 05/26/24 23:42 99.3 F 97 H 19 97 05/26/24 23:35 125/67 05/26/24 23:33 99.5 F 102 H 19 99 05/26/24 23:15 99.7 F H 115 H 22 98 05/26/24 23:15 116/70 05/26/24 23:15 116/70 05/26/24 23:12 99.7 F H 100 H 20 99 05/26/24 23:00 110/67 05/26/24 23:00 110/67 05/26/24 22:45 114/68 05/26/24 22:45 99.7 F H 115 H 21 99 05/26/24 22:39 99.7 F H 112 H 23 99 05/26/24 22:30 122/68 05/26/24 22:27 99.7 F H 111 H 20 99 05/26/24 22:21 99.7 F H 114 H 22 99 05/26/24 22:15 117/73 05/26/24 22:15 117/73 05/26/24 22:10 109/68 05/26/24 22:09 99.7 F H 126 H 22 100 05/26/24 22:05 117/77 05/26/24 22:05 117/77 05/26/24 22:05 117/77 05/26/24 22:05 117/77 05/26/24 22:03 99.7 F H 138 H 15 100 05/26/24 22:00 112/75 05/26/24 22:00 112/75 05/26/24 22:00 112/75 05/26/24 21:57 99.7 F H 105 H 20 99 05/26/24 21:55 112/66 05/26/24 21:55 112/66 05/26/24 21:55 112/66 05/26/24 21:55 112/66 05/26/24 21:54 99.7 F H 109 H 23 98 05/26/24 21:50 115/67 05/26/24 21:50 115/67 05/26/24 21:50 115/67 05/26/24 21:50 115/67 05/26/24 21:48 99.7 F H 111 H 20 98 05/26/24 21:45 116/71 05/26/24 21:45 116/71 05/26/24 21:45 116/71 05/26/24 21:45 99.9 F H 109 H 20 99 05/26/24 21:40 107/70 05/26/24 21:40 107/70 05/26/24 21:40 107/70 05/26/24 21:40 107/70 05/26/24 21:35 113/66 05/26/24 21:35 113/66 05/26/24 21:30 114/67 05/26/24 21:27 99.9 F H 113 H 21 114/68 99 05/26/24 21:22 116/76 05/26/24 21:09 99.9 F H 113 H 18 120/80 98 05/26/24 20:57 114 H 24 99 05/26/24 20:51 112 H 17 98 05/26/24 20:15 116 H 32 H 99 05/26/24 20:00 120/83 05/26/24 19:53 97.2 F L 115 H 18 104/71 98 05/26/24 19:36 100 H 19 100 05/26/24 19:33 97 H 19 100 05/26/24 19:15 91 H 22 100 05/26/24 19:00 104/62 05/26/24 19:00 104/62 05/26/24 18:25 98.4 F 87 15 118/62 100 05/26/24 18:15 96 H 17 113/66 100 05/26/24 18:05 97.7 F 94 H 16 110/61 100 05/26/24 15:30 100 H 12 100/57 L 97 05/26/24 15:01 95/60 L 05/26/24 14:36 99 H 21 112/75 97 O2 Del Method O2 Flow Rate 05/27/24 12:24 Room Air 05/27/24 11:26 Room Air 05/27/24 08:30 05/27/24 08:27 Room Air 05/27/24 08:16 05/27/24 08:06 05/27/24 08:03 05/27/24 08:00 05/27/24 07:57 05/27/24 07:51 05/27/24 07:30 05/27/24 07:30 Room Air 05/27/24 07:16 05/27/24 07:03 05/27/24 07:00 05/27/24 06:54 05/27/24 06:45 05/27/24 06:42 05/27/24 06:30 05/27/24 06:30 05/27/24 06:15 05/27/24 06:03 05/27/24 06:00 05/27/24 05:57 05/27/24 05:45 05/27/24 05:15 05/27/24 05:12 05/27/24 05:00 05/27/24 05:00 05/27/24 05:00 05/27/24 05:00 05/27/24 04:45 05/27/24 04:45 05/27/24 04:42 05/27/24 04:21 05/27/24 04:15 05/27/24 04:15 05/27/24 04:15 05/27/24 04:15 05/27/24 04:15 05/27/24 04:15 05/27/24 04:00 05/27/24 04:00 05/27/24 04:00 05/27/24 04:00 05/27/24 04:00 05/27/24 03:45 05/27/24 03:45 05/27/24 03:30 05/27/24 03:21 05/27/24 03:15 05/27/24 03:15 05/27/24 03:15 05/27/24 03:06 05/27/24 02:45 05/27/24 02:45 05/27/24 02:42 05/27/24 02:30 05/27/24 02:30 05/27/24 02:27 05/27/24 02:15 05/27/24 02:15 05/27/24 02:02 05/27/24 02:02 05/27/24 02:02 05/27/24 02:00 05/27/24 01:03 05/27/24 01:00 05/27/24 00:54 05/27/24 00:45 05/27/24 00:45 05/27/24 00:45 05/27/24 00:30 05/27/24 00:27 05/27/24 00:15 05/27/24 00:15 05/27/24 00:00 05/27/24 00:00 05/27/24 00:00 05/27/24 00:00 05/26/24 23:45 05/26/24 23:42 05/26/24 23:35 05/26/24 23:33 05/26/24 23:15 05/26/24 23:15 05/26/24 23:15 05/26/24 23:12 05/26/24 23:00 05/26/24 23:00 05/26/24 22:45 05/26/24 22:45 05/26/24 22:39 05/26/24 22:30 05/26/24 22:27 05/26/24 22:21 05/26/24 22:15 05/26/24 22:15 05/26/24 22:10 05/26/24 22:09 05/26/24 22:05 05/26/24 22:05 05/26/24 22:05 05/26/24 22:05 05/26/24 22:03 05/26/24 22:00 05/26/24 22:00 05/26/24 22:00 05/26/24 21:57 05/26/24 21:55 05/26/24 21:55 05/26/24 21:55 05/26/24 21:55 05/26/24 21:54 05/26/24 21:50 05/26/24 21:50 05/26/24 21:50 05/26/24 21:50 05/26/24 21:48 05/26/24 21:45 05/26/24 21:45 05/26/24 21:45 05/26/24 21:45 05/26/24 21:40 05/26/24 21:40 05/26/24 21:40 05/26/24 21:40 05/26/24 21:35 05/26/24 21:35 05/26/24 21:30 05/26/24 21:27 05/26/24 21:22 05/26/24 21:09 05/26/24 20:57 05/26/24 20:51 05/26/24 20:15 05/26/24 20:00 05/26/24 19:53 Room Air 05/26/24 19:36 05/26/24 19:33 05/26/24 19:15 05/26/24 19:00 05/26/24 19:00 05/26/24 18:25 Room Air 05/26/24 18:15 Room Air 05/26/24 18:05 Oxymask 4 05/26/24 15:30 05/26/24 15:01 05/26/24 14:36 Pain Intensity Rectal: Pain Intensity: 2 Posterior Medial Head: Pain Intensity: 3 Transfer of Care Handoff Completed per policy Notes Mental Status: alert / awake / arousable and participated in evaluation Patient Amnestic to Procedure: Yes Nausea / Vomiting: adequately controlled Pain: adequately controlled Airway Patency, RR, SpO2: stable & adequate BP & HR: stable & adequate Hydration State: stable & adequate Anesthetic Complications: no major complications apparent and Pt Satisfied with anesthetic care
[2024-05-27] MEDS: ONDANSETRON INJ 2 MG/ML 2 ML VIAL ONE (13:25)
[2024-05-27] MEDS: MIDAZOLAM HCL 1 MG/ML 2ML VIAL ONE (13:25)
[2024-05-27] MEDS: LIDOCAINE 2% 2 ML VIAL/AMP(20MG/ML) INFIL ONE (13:25)
[2024-05-27] MEDS: HYDROCORTISONE SOD SUCCINATE 100 MG/2 ML VIAL ONE (13:25)
[2024-05-27] MEDS: PROPOFOL IV EMULSION 10 MG/ML 20 ML VIAL IV ONE (13:25)
[2024-05-27 18:01] LABS: Hematocrit (blood only) 23.7 % (37.0-47.0); Hemoglobin 8.2 g/dl (12.0-16.0)
[2024-05-28 00:58] LABS: Hematocrit (blood only) 23.1 % (37.0-47.0); Hemoglobin 7.7 g/dl (12.0-16.0)
[2024-05-28 07:12] LABS: BUN Creatinine Ratio 8.3 (10-20); Calcium 7.7 mg/dl (8.6-10.3); Creatinine Clr Calc Pharmacy 163.3 ml/min; Magnesium 1.8 mg/dl (1.7-2.4); Potassium 3.4 mmol/L (3.5-5.1)
--- NOTE | 2024-05-28 08:45 | Critical Care Progress Note ---
Date of Service May 28, 2024 Assessment & Plan (1) Postoperative hemorrhage of anus: Plan: Neuro: syncope with head strike in ER with head laceration/closed head injury- - Head laceration with gel closure no hematoma or drainage noted Cardiac - no acute needs at this time Respiratory - NO acute needs GI - -Reviewed colonoscopy findings -Defer additional therapy to surgical team versus GI RENAL/LYTES - NO acute needs - ICU electrolyte protocol ENDO - no acute needs HEME - acute blood loss anemia -Received 1 unit packed red blood cells -Serial H&H reassuring ID - NO concern at this time for infective causes LINES/IV ACCESS - PIV x3 Continue use of these lines DVT PROPHYLAXIS - SCDS, ambulation- hold chemoprophylaxis in setting of acute blood loss DISPO: Stable for downgrade out of ICU (2) Rectal bleed: (3) Acute blood loss as cause of postoperative anemia: (4) Laceration of scalp: Admission and Anticipated Discharge Date Admission Date: May 26, 2024 Subjective Couple of small bowel movements overnight, no significant bleeding otherwise. No lightheadedness nor dizziness Physical Exam Physical Exam: General: Alert. nontoxic. Skin: Warm, dry, Head: Atraumatic Ears, nose, mouth and throat: airway patent Cardiovascular: Normal peripheral perfusion Respiratory: no respiratory distress Gastrointestinal: Non distended Musculoskeletal: No deformity Results & Data Results & Data Vital Signs (Past 12 Hours) Vital Signs Temp Pulse Resp BP Pulse Ox 05/28/24 08:00 84 05/28/24 05:18 36.9 C 74 16 91/55 L 97 05/28/24 04:06 36.9 C 82 18 97 05/28/24 03:06 36.9 C 87 19 96 05/28/24 03:00 97/50 L 05/28/24 02:57 36.9 C 87 19 96 05/28/24 02:03 37.0 C 88 19 96 05/28/24 02:00 99/51 L 05/28/24 01:54 37.0 C 87 20 96 05/28/24 01:03 37.2 C 87 20 97 05/28/24 01:00 101/59 L 05/28/24 01:00 101/59 L 05/28/24 00:57 37.2 C 81 17 98 05/28/24 00:06 37.4 C 86 21 99 05/28/24 00:00 101/64 05/28/24 00:00 101/64 05/28/24 00:00 101/64 05/27/24 23:57 37.2 C 89 20 100 05/27/24 23:30 114/63 05/27/24 23:30 114/63 05/27/24 23:06 37.4 C 94 H 16 98 05/27/24 23:00 112/64 05/27/24 23:00 112/64 05/27/24 22:57 23.2 C L 92 H 16 99 05/27/24 22:30 92 H 17 99 05/27/24 22:15 113/85 05/27/24 22:15 113/85 05/27/24 22:00 104/71 05/27/24 21:57 37.6 C H 93 H 18 97 05/27/24 21:45 112/60 05/27/24 21:45 112/60 05/27/24 21:45 112/60 05/27/24 21:45 112/60 05/27/24 21:45 112/60 05/27/24 21:45 37.5 C 87 14 98 05/27/24 21:15 37.5 C 89 18 99 05/27/24 21:15 111/63 05/27/24 21:15 111/63 05/27/24 21:15 111/63 05/27/24 21:15 111/63 05/27/24 21:15 111/63 05/27/24 21:03 90 23 98 05/27/24 21:00 110/62 05/27/24 21:00 110/62 05/27/24 21:00 110/62 05/27/24 20:51 37.4 C 91 H 20 99 05/27/24 20:45 110/61 05/27/24 20:45 35.7 C L 87 21 99 Critical Care Results & Data Vital Signs (Past 12 Hours) Vital Signs Temp Pulse Resp BP Pulse Ox 05/28/24 08:00 84 05/28/24 05:18 36.9 C 74 16 91/55 L 97 05/28/24 04:06 36.9 C 82 18 97 05/28/24 03:06 36.9 C 87 19 96 05/28/24 03:00 97/50 L 05/28/24 02:57 36.9 C 87 19 96 05/28/24 02:03 37.0 C 88 19 96 05/28/24 02:00 99/51 L 05/28/24 01:54 37.0 C 87 20 96 05/28/24 01:03 37.2 C 87 20 97 05/28/24 01:00 101/59 L 05/28/24 01:00 101/59 L 05/28/24 00:57 37.2 C 81 17 98 05/28/24 00:06 37.4 C 86 21 99 05/28/24 00:00 101/64 05/28/24 00:00 101/64 05/28/24 00:00 101/64 05/27/24 23:57 37.2 C 89 20 100 05/27/24 23:30 114/63 05/27/24 23:30 114/63 05/27/24 23:06 37.4 C 94 H 16 98 05/27/24 23:00 112/64 05/27/24 23:00 112/64 05/27/24 22:57 23.2 C L 92 H 16 99 05/27/24 22:30 92 H 17 99 05/27/24 22:15 113/85 05/27/24 22:15 113/85 05/27/24 22:00 104/71 05/27/24 21:57 37.6 C H 93 H 18 97 05/27/24 21:45 112/60 05/27/24 21:45 112/60 05/27/24 21:45 112/60 05/27/24 21:45 112/60 05/27/24 21:45 112/60 05/27/24 21:45 37.5 C 87 14 98 05/27/24 21:15 37.5 C 89 18 99 05/27/24 21:15 111/63 05/27/24 21:15 111/63 05/27/24 21:15 111/63 05/27/24 21:15 111/63 05/27/24 21:15 111/63 05/27/24 21:03 90 23 98 05/27/24 21:00 110/62 05/27/24 21:00 110/62 05/27/24 21:00 110/62 05/27/24 20:51 37.4 C 91 H 20 99 05/27/24 20:45 110/61 05/27/24 20:45 35.7 C L 87 21 99 Lab & Micro Results (Past 24 Hours) RBC 2.84 M/uL (4.20-5.40) L 05/27/24 WBC 14.75 K/ul (4.8-10.8) H 05/27/24 Hgb 7.4 g/dl (12.0-16.0) L 05/28/24 Hct 23.1 % (37.0-47.0) L 05/28/24 MCV 88.7 fL (80.0-100.0) 05/27/24 MCH 30.3 pg (25.0-34.0) 05/27/24 MCHC 34.1 g/dL (32.0-36.0) 05/27/24 RDW Standard Deviation 44.2 fL (36.4-46.3) 05/27/24 RDW Coefficient of Variation 13.6 % (11.5-14.5) 05/27/24 Plt Count 210 K/uL (130-400) 05/27/24 MPV 10.6 fL (9.4-12.4) 05/27/24 Neutrophils (%) (Auto) 78.4 % 05/27/24 Lymphocytes (%) (Auto) 14.8 % 05/27/24 Monocytes # (Auto) 0.92 K/uL (0.11-0.59) H 05/27/24 Eosinophils # (Auto) 0.00 K/uL (0.00-0.50) 05/27/24 Immature Granulocyte % (Auto) 0.4 % 05/27/24 Neutrophils # (Auto) 11.55 K/uL (1.40-6.50) H 05/27/24 Lymphocytes # (Auto) 2.19 K/uL (1.20-3.40) 05/27/24 Monocytes # (Auto) 0.92 K/uL (0.11-0.59) H 05/27/24 Eosinophils # (Auto) 0.00 K/uL (0.00-0.50) 05/27/24 Basophils # (Auto) 0.03 K/uL (0.00-0.20) 05/27/24 Immature Granulocyte # (Auto) 0.06 K/uL (0.01-0.20) 4 Na 142 mmol/L (136-145) 05/28/24 K 3.4 mmol/L (3.5-5.1) L 05/28/24 Cl 113 mmol/L (98-107) H 05/28/24 CO2 27 mmol/L (21-32) 05/28/24 Anion Gap 2 (3-11) L 05/28/24 BUN 4 mg/dl (6-23) L 05/28/24 Creatinine 0.48 mg/dl (0.6-1.2) L 05/28/24 BUN/Creatinine Ratio 8.3 (10-20) L 05/28/24 Glu 101 mg/dl (70-99(Fasting)) H 05/28/24 Ca 7.7 mg/dl (8.6-10.3) L 05/28/24 Mg 1.8 mg/dl (1.7-2.4) 05/28/24 06:22 Calcium Level 7.7 mg/dl (8.6-10.3) L 05/28/24 06:22 Prothromb Time International Ratio 1.1 (0.9-1.1) 05/27/24 10:1 1 I & O Totals 24 Hours 05/27/24 05/28/24 05/29/24 06:59 06:59 06:59 Intake Total 3894.917 / 3894.917 3560.000 / 3560.000 Output Total 6400 / 6400 3775 / 3775 Balance -2505.083 / -2505.083 -215.000 / -215.000 Cumulative 05/26/24 11:14 thru 05/28/24 06:00 Intake Total 7454.917 Output Total 44590 Balance -2720.083 RT Ventilator Mngmt (Last Documented) Ventilator Ordered Settings Respiratory Rate 16 05/28/24 05:18 Ventilator - PT Measurements Respiratory Rate 16 Coding Level of Care Code 11940 SUB INP/OBS CARE 2/35MIN Diagnoses Postoperative hemorrhage of anus K62.5; K91.89 Rectal bleed K62.5 Acute blood loss as cause of postoperative anemia D62 Laceration of scalp, initial encounter S01.01XA Encounter type: initial encounter (4) Laceration of scalp Encounter type: initial encounter Qualified Code(s): S01.01XA - Laceration without foreign body of scalp, initial encounter
--- NOTE | 2024-05-28 09:28 | Gastroenterology Progress Note ---
Date of Service May 28, 2024 Assessment & Plan (1) Rectal bleed: Plan: H/H 7.4/23.1. No ongoing GI bleeding. No current evidence of acute GI pathology outside of hemorrhoidectomy related findings. Continue to monitor H/H per primary team. Monitor for any ongoing GI bleeding. No further acute inpatient plans from a GI perspective. If patient were to demonstrate chronic issues, could consider an outpatient repeat colonoscopy again in the future. Admission and Anticipated Discharge Date Admission Date: May 26, 2024 Supervising Physician Co-Signing Physician Notes I examined the patient and reviewed the medical record, laboratory data and imaging studies. I agree with the assessment and plan of care as suggested by the advanced practice provider. Patient appears comfortable and much better than yesterday her pulse is better she states she had a small amount of bleeding but other than that she is doing well she has ulcerations post hemorrhoidectomy no evidence of inflammatory bowel disease Case discussed with surgery no further GI intervention planned further management as per surgery Thank you for allowing us to take part in the care of your patient will sign off please recall if there are any questions Subjective Patient is a 28 yo female with rectal bleeding following a hemorrhoidectomy. Patient underwent a colonoscopy on 05/27/24 that did not indicate any other GI pathology to explain her symptoms. There were no acute concerns for IBD. She denies abdominal pain or ongoing bleeding. She did have a liquid diet this morning. Review of Systems Gastrointestinal: no abdominal pain, no diarrhea/loose stools and no blood in stools Physical Exam Constitutional: well developed Respiratory: normal respiratory effort Gastrointestinal (Abdomen): normal bowel sounds, soft, nontender, no hepatosplenomegaly Psychiatric: Orientation: alert and oriented x 3 Results & Data Results & Data Vital Signs (Past 12 Hours) Vital Signs Temp Pulse Resp BP Pulse Ox 05/28/24 08:00 84 05/28/24 05:18 36.9 C 74 16 91/55 L 97 05/28/24 04:06 36.9 C 82 18 97 05/28/24 03:06 36.9 C 87 19 96 05/28/24 03:00 97/50 L 05/28/24 02:57 36.9 C 87 19 96 05/28/24 02:03 37.0 C 88 19 96 05/28/24 02:00 99/51 L 05/28/24 01:54 37.0 C 87 20 96 05/28/24 01:03 37.2 C 87 20 97 05/28/24 01:00 101/59 L 05/28/24 01:00 101/59 L 05/28/24 00:57 37.2 C 81 17 98 05/28/24 00:06 37.4 C 86 21 99 05/28/24 00:00 101/64 05/28/24 00:00 101/64 05/28/24 00:00 101/64 05/27/24 23:57 37.2 C 89 20 100 05/27/24 23:30 114/63 05/27/24 23:30 114/63 05/27/24 23:06 37.4 C 94 H 16 98 05/27/24 23:00 112/64 05/27/24 23:00 112/64 05/27/24 22:57 23.2 C L 92 H 16 99 05/27/24 22:30 92 H 17 99 05/27/24 22:15 113/85 05/27/24 22:15 113/85 05/27/24 22:00 104/71 05/27/24 21:57 37.6 C H 93 H 18 97 05/27/24 21:45 112/60 05/27/24 21:45 112/60 05/27/24 21:45 112/60 05/27/24 21:45 112/60 05/27/24 21:45 112/60 05/27/24 21:45 37.5 C 87 14 98 PG Care Time/CCT Total # of Minutes Spent Total Time Spent with Patient: Total time spent is greater than 50% in coordination of care (as documented) at patient's floor/unit and/or counseling patient: Coding Level of Care Code 51912 SUB INP/OBS CARE 3/50MIN Diagnoses Rectal bleed K62.5
--- NOTE | 2024-05-28 12:01 | Surgery Progress Note ---
Date of Service May 28, 2024 Assessment & Plan (1) Rectal bleed: Plan: Her colonoscopy findings and images were personally viewed and interpreted by myself Discussed with GI that the bleeding is likely intermittent from her hemorrhoidectomy site No plans for any surgical intervention at this time as the bleeding has slowed and she was just operated on 2 days ago without any signs of bleeding Will plan to repeat her hemoglobin tomorrow morning as long she has not been bleeding and stable we can discharge her home Can advance her diet Will also place her on MiraLAX daily to avoid any constipation/straining Transfer out of the ICU to the stepdown unit Admission and Anticipated Discharge Date Admission Date: May 26, 2024 Subjective Patient seen and examined. Has had less bleeding over the last 24 hours. Hemoglobin 7.4. She is hemodynamically stable. Physical Exam Constitutional: WD/WN, vitals as above Gastrointestinal (Abdomen): normal bowel sounds, soft, nontender, no hepatosplenomegaly Results & Data Vital Signs (Past 12 Hours) Vital Signs Temp Pulse Resp BP Pulse Ox O2 Del Method 05/28/24 10:44 87 18 112/57 L 05/28/24 09:06 36.8 C 96 H 16 98 05/28/24 09:00 112/67 05/28/24 08:06 37.0 C 86 16 98 05/28/24 08:00 84 05/28/24 07:06 36.5 C 81 17 97 Room Air 05/28/24 07:00 102/61 05/28/24 05:18 36.9 C 74 16 91/55 L 97 05/28/24 04:06 36.9 C 82 18 97 05/28/24 03:06 36.9 C 87 19 96 05/28/24 03:00 97/50 L 05/28/24 02:57 36.9 C 87 19 96 05/28/24 02:03 37.0 C 88 19 96 05/28/24 02:00 99/51 L 05/28/24 01:54 37.0 C 87 20 96 05/28/24 01:03 37.2 C 87 20 97 05/28/24 01:00 101/59 L 05/28/24 01:00 101/59 L 05/28/24 00:57 37.2 C 81 17 98 05/28/24 00:06 37.4 C 86 21 99 05/28/24 00:00 101/64 05/28/24 00:00 101/64 05/28/24 00:00 64 PG Care Time/CCT Total # of Minutes Spent Total Time Spent with Patient: Total time spent is greater than 50% in coordination of care (as documented) at patient's floor/unit and/or counseling patient: Coding Level of Care Code 73501 Post Operative Follow-Up Diagnoses Rectal bleed K62.5
[2024-05-28] MEDS: ACETAMINOPHEN 325 MG TAB PO PRN (12:45)
[2024-05-28] MEDS: POLYETHYLENE (MIRALAX) 17 GM PACK PO SCH (13:58)
[2024-05-28 16:05] LABS: Hematocrit (blood only) 27.9 % (37.0-47.0); Hemoglobin 9.3 g/dl (12.0-16.0)
[2024-05-29] MEDS: PROCHLORPERAZINE MALEATE 5 MG TAB PO ONE (00:17)
[2024-05-29 06:09] LABS: Basophils # (auto) 0.06 K/uL (0.00-0.20); Basophils % (auto) 0.7 %; Eosinophils # (auto) 0.07 K/uL (0.00-0.50); Eosinophils % (auto) 0.9 %; Hematocrit (blood only) 23.4 % (37.0-47.0); Hemoglobin 7.9 g/dl (12.0-16.0); Immature Granulocytes # (auto) 0.03 K/uL (0.01-0.20); Immature Granulocytes % (auto) 0.4 %; Lymphocytes # (auto) 2.06 K/uL (1.20-3.40); Lymphocytes % (auto) 25.4 %; Mean Corpuscular Hemoglobin 30.5 pg (25.0-34.0); Mean Corpuscular Hgb Conc 33.8 g/dL (32.0-36.0); Mean Corpuscular Volume 90.3 fL (80.0-100.0); Mean Platelet Volume 10.5 fL (9.4-12.4); Monocytes # (auto) 0.56 K/uL (0.11-0.59); Monocytes % (auto) 6.9 %; Neutrophils # (auto) 5.34 K/uL (1.40-6.50); Neutrophils % (auto) 65.7 %; Platelet Count 205 K/uL (130-400); RDW Coefficient of Variation 13.3 % (11.5-14.5); Red Blood Count 2.59 M/uL (4.20-5.40); White Blood Count 8.12 K/ul (4.8-10.8)
[2024-05-29 06:32] LABS: BUN Creatinine Ratio 7.1 (10-20); Calcium 8.2 mg/dl (8.6-10.3); Magnesium 1.9 mg/dl (1.7-2.4); Potassium 3.4 mmol/L (3.5-5.1); RBC Morphology Unremarkable
--- NOTE | 2024-05-29 08:53 | Surgery Progress Note ---
Date of Service May 29, 2024 Assessment & Plan (1) Rectal bleed: Plan: Her hemoglobin has been stable was 7.4 yesterday and 7.9 today, the 9.3 was likely artifactually high yesterday I think she stable for discharge today and will keep her on MiraLAX daily I did tell her to contact her surgeon Dr. Layton tomorrow for further discussion about restrictions postoperatively No lifting, pushing or pulling more than 10 pounds until discussion with Dr. Layton She is to avoid any strenuous activity I did discuss with her that if she has any decent volume of blood present within her stool or per rectum, she should come back to the ER Admission and Anticipated Discharge Date Admission Date: May 26, 2024 Subjective Patient seen and examined. Had multiple bowel movements with small amount of blood overall yesterday. Had some nausea that is resolved. Afebrile. Denies abdominal pain. Physical Exam Constitutional: WD/WN, vitals as above Gastrointestinal (Abdomen): normal bowel sounds, soft, nontender, no he patosplenomegaly Results & Data Vital Signs (Past 12 Hours) Vital Signs Temp Pulse Pulse Resp BP Pulse Ox O2 Del Method 05/29/24 07:24 36.7 C 86 18 108/61 96 Room Air 05/29/24 03:00 36.7 C 84 16 104/53 L 98 Room Air 05/29/24 00:00 88 05/28/24 22:00 36.9 C 98 H 20 115/69 100 Room Air PG Care Time/CCT Total # of Minutes Spent Total Time Spent with Patient: Total time spent is greater than 50% in coordination of care (as documented) at patient's floor/unit and/or counseling patient: Coding Level of Care Code 66134 Post Operative Follow-Up Diagnoses Rectal bleed K62.5
[2024-05-29] MEDS ORDERED: PROCHLORPERAZINE MALEATE 5 MG TAB PO PRN (09:16)
== END 2024-05-29 14:19 | disposition home or self-care (01) | DRG 920 ==
LOC: ED 11:14 → 1E 11:14 → 4W 05-28 13:50